=== PATIENT | female | born 1930 | race Caucasian/White ===

== ENCOUNTER 2017-03-18 20:44 | Inpatient (IN) | payer MEDICARE, MEDICAID ==
[~2017-03-18] VITALS: Ht 160 cm; Wt 69.0 kg
[2017-03-18] MEDS ORDERED: morphine 4 MG/ML VIAL IV STA (20:47)
[2017-03-18] MEDS ORDERED: ONDANSETRON 4 MG INJ IV STA (20:47)
[2017-03-18] MEDS ORDERED: ASPIRIN 81 MG TAB PO STA (20:50)
[2017-03-18] MEDS ORDERED: LORAZEPAM 2 MG INJ ONE (21:04)
[2017-03-18] MEDS ORDERED: LORAZEPAM 2 MG INJ IV ONE (21:30)
[2017-03-18] MEDS ORDERED: ASPIRIN 300 MG SUPP PR ONE (21:30)
[2017-03-18] MEDS: LABETALOL HCL 20MG INJ IV ONE ×2 (21:30→21:33)
[2017-03-18 21:45] LABS: BASOPHILS % 0.1 % (0.0-2.0); EOSINOPHILS % 0.1 % (0.0-7.0); HEMATOCRIT 33.9 % (37.0-47.0); HEMOGLOBIN 12.2 g/dl (12.0-16.0); LYMPHOCYTES # 1.5 10^3/ul (0.8-2.9); LYMPHOCYTES % 12.7 % (15.0-51.0); MEAN CORPUSCULAR HEMOGLOBIN 32.9 pg (29.0-33.0); MEAN CORPUSCULAR VOLUME 91.4 fl (82.0-101.0); MEAN PLATELET VOLUME 11.1 fl (7.4-10.4); MONOCYTE # 0.5 10^3/ul (0.3-0.9); MONOCYTES % 4.3 % (0.0-11.0); NEUTROPHILS % 82.3 % (39.0-77.0); PLATELET COUNT 253 10^3/UL (140-415); RED BLOOD COUNT 3.71 10^6/ul (4.20-5.40); RED CELL DISTRIBUTION WIDTH 12.1 % (11.5-14.5); WHITE BLOOD COUNT 11.4 10^3/ul (4.8-10.8)
[2017-03-18] MEDS ORDERED: LIDOCAINE 1% (MDV) 20 ML INJ ONE (22:05)
[2017-03-18] MEDS ORDERED: MIDAZOLAM 1 MG/ML 2 ML INJ ONE (22:05)
[2017-03-18] MEDS ORDERED: NITROGLYCERIN (IC) 100 MCG/ML INJ ONE (22:05)
[2017-03-18] MEDS ORDERED: IOHEXOL 350MG/ML 50 ML BTL ONE (22:05)
[2017-03-18] MEDS ORDERED: FENTAnyl 50 MCG/ML VIAL ONE (22:05)
[2017-03-18] MEDS ORDERED: IODIXANOL LOCM 100 ML BTL ONE (22:05)
[2017-03-18] MEDS ORDERED: VERAPAMIL 5 MG INJ ONE (22:06)
[2017-03-18 22:10] LABS: INR 0.93; PROTIME 12.5 Sec (12.2-14.2)
[2017-03-18 22:11] LABS: PARTIAL THROMBOPLASTIN TIME 32.1 Sec (25.0-35.0)
--- NOTE | 2017-03-18 22:12 | ERA ---
ER Documentation Chief Complaint Date/Time DATE: 03/18/17 TIME: 22:11 Chief Complaint BIBRA 79 c/o SE activity per family. Possible STEMI per EMS. HPI Patient is an 86-year-old female with hypertension who presents with altered mental status. The patient was brought in by ambulance. The paramedics said they had a potential STEMI from the field but no EKG was transmitted to the hospital. The patient had no treatment in route. The patient was not answering questions in the emergency department in the history and physical exam is limited secondary to the patient's mental status and no family here at this point. EKG from the field did not show a true STEMI. ROS All systems reviewed and are negative except as per history of present illness. Allergies Allergies: Coded Allergies: No Known Allergy (Unverified , 03/17/17) PMhx/Soc History of Surgery: Yes (hernia, cholecystectomy) Anesthesia Reaction: No Hx Neurological Disorder: No Hx Respiratory Disorders: No Hx Miscellaneous Medical Probl: Yes (gerd) Hx Alcohol Use: No Hx Substance Use: No Hx Tobacco Use: No FmHx Unable to obtain Physical Exam Vitals Vital Signs Date Time Temp Pulse Resp B/P Pulse Ox O2 Delivery O2 Flow Rate FiO2 03/18/17 21:00 Nasal Cannula 6 03/18/17 20:54 98.0 99 30 204/122 97 Physical Exam Const: Moderate distress secondary to shortness of breath and altered mental status Head: Atraumatic Eyes: Normal Conjunctiva ENT: Normal External Ears, Nose and Mouth. Neck: Full range of motion..~ No meningismus. Resp: Tachypnea and decreased breath sounds bilaterally Cardio: Regular rate and rhythm, no murmurs Abd: Soft, non tender, non distended. Normal bowel sounds Skin: Pale skin Back: No midline or flank tenderness Ext: No cyanosis, or edema Neur: Awake But confused and not answering questions or following commands Result Diagram: 03/18/17211903/18/172119 Results 24 hrs Laboratory Tests Test 03/18/17 20:57 03/18/17 21:20 Bedside Glucose 208mg/dL White Blood Count 11.410^3/ul Red Blood Count 3.7110^6/ul Hemoglobin 12.2g/dl Hematocrit 33.9% Mean Corpuscular Volume 91.4fl Mean Corpuscular Hemoglobin 32.9pg Mean Corpuscular Hemoglobin Concent 36.0g/dl Red Cell Distribution Width 12.1% Platelet Count 25450^3/UL Mean Platelet Volume 11.1fl Neutrophils % 82.3% Lymphocytes % 12.7% Monocytes % 4.3% Eosinophils % 0.1% Basophils % 0.1% Nucleated Red Blood Cells % 0.0/100WBC Neutrophils # (Manual) 9.410^3/ul Lymphocytes # 1.510^3/ul Monocytes # 0.510^3/ul Eosinophils # 0.010^3/ul Basophils # 0.010^3/ul Nucleated Red Blood Cells # 0.010^3/ul Prothrombin Time 12.5Sec Prothrombin Time Ratio 1.0 INR International Normalized Ratio 0.93 Activated Partial Thromboplast Time 32.1Sec Sodium Level 114mmol/L Potassium Level 3.8mmol/L Chloride Level 75mmol/L Carbon Dioxide Level 17mmol/L Anion Gap 26 Blood Urea Nitrogen 10mg/dl Creatinine 0.41mg/dl Glucose Level 196mg/dl Calcium Level 8.5mg/dl Total Bilirubin 0.7mg/dl Direct Bilirubin 0.00mg/dl Indirect Bilirubin 0.7mg/dl Aspartate Amino Transf (AST/SGOT) 39IU/L Alanine Aminotransferase (ALT/SGPT) 38IU/L Alkaline Phosphatase 130IU/L Troponin I < 0.012ng/ml Total Protein 8.1g/dl Albumin 4.3g/dl Globulin 3.80g/dl Albumin/Globulin Ratio 1.13 Current Medications Medications (Trade) Dose Ordered Sig/Teddy Route PRN Reason Start Time Stop Time Status Last Admin Dose Admin Morphine Sulfate (morphine) 4 mg ONCE STAT IV 03/18/17 20:47 03/18/17 20:49 DC Ondansetron HCl (Zofran Inj) 4 mg ONCE STAT IV 03/18/17 20:47 03/18/17 20:49 DC 03/18/17 21:34 Aspirin (Aspirin) 162 mg ONCE STAT PO 03/18/17 20:50 03/18/17 21:22 DC Lorazepam (Ativan) 2 mg STK-MED ONCE .ROUTE 03/18/17 21:04 03/18/17 21:05 DC Lorazepam (Ativan) 1 mg ONCE ONCE IV 03/18/17 21:30 03/18/17 21:31 DC 03/18/17 21:34 Labetalol HCl (Labetalol) 20 mg ONCE ONCE IV 03/18/17 21:30 03/18/17 21:31 DC Aspirin (Aspirin) 300 mg ONCE ONCE ME 03/18/17 21:30 03/18/17 21:31 DC 03/18/17 21:34 Procedures/MDM EKG #1 read by me: Rate/Rhythm: Regular rate and rhythm at a normal rate intervals: Normal Impression: No evidence of ischemia or arrhythmia. No sign of ST elevations or reciprocal depressions EKG #2 read by me: Rate/Rhythm: Regular rate and rhythm at a normal rate Intervals: Normal Impression: Diffuse ST elevations inferior leads with reciprocal depressions consistent with STEMI, much changed from 1st EKG done approximately [address] brain shows no intrarenal hemorrhage or mass per radiology. PROCEDURE: XR Chest. CLINICAL INDICATION: Sepsis. TECHNIQUE: Single frontal view. COMPARISON: None. FINDINGS: There is mild diffuse bilateral interstitial pulmonary disease. The heart size is normal. There is calcification in the aorta consistent with atherosclerosis. There is no pleural effusion. There is no pneumothorax. IMPRESSION: 1. Diffuse bilateral interstitial pulmonary disease. This is nonspecific. Clinical correlation is advised. 2. Atherosclerosis. 3. Otherwise normal chest x-ray. RPTAT: QQ .Pillo Rojo MD, MD Date Time Electronically viewed and signed by .Pillo Rojo MD, MD on 03/18/2017 22:28 Patient is an 86-year-old female who presented confused with altered mental status. She appeared to have shortness of breath as well. An initial EKG done upon arrival shows no STEMI in the emergency department. Our nurse noticed that after a few minutes in the room morphology on the degreasing solution mixer was changing and a repeat EKG showed ST elevations in the inferior leads and a code STEMI was called at 2121. Dr. Lim was called at 2123 as he is the senior court office assistant applications engineering manager. A 2134 Dr. Lim called back and we were concerned for doing an immediate cath and giving anticoagulation without having a CT scan of the brain based on the patient's altered mental status and unclear history. We did believe that the risks would outweigh the benefits of going directly to the cardiac Soldering Technician. At [address] scan and we were still awaiting arrival of the cardiac cath team. Once the patient returned from CT scan we called to have the CT brain read immediately and it was read at 2228. The patient will be admitted to the intensive care unit under the care of Dr. Macdonald from the panel team. The door to needle time was more than 60 minutes given the initial EKG which was normal as well as needing to wait for the CT scan of the brain which I did feel was in the best interest of the patient's presentation given the altered mental status and concern for anticoagulating if the patient had a brain bleed. The patient eventually was found to have a sodium level of 114 which is likely the cause of the patient's altered mental status. The patient will be admitted to the intensive care unit under the care of Dr. Macdonald. Prognosis is poor given her age and comorbidities. Critical Care: Time: 45 minutes excluding all billable procedures. Treatments/Evaluations: Close monitoring and treatment of unstable vital signs, cardiorespiratory, and neurologic status, while maintaining tight balance of fluid, respiratory, and cardiac interventions. Departure Diagnosis: Primary Impression: STEMI (ST elevation myocardial infarction) Qualified Code: I21.3 - ST elevation myocardial infarction (STEMI), unspecified artery Additional Impressions: Acute encephalopathy Seizure Hyponatremia Condition: Critical JOANA HANSON MD Mar 18, 2017 22:12
--- NOTE | 2017-03-18 22:13 | RADRPT ---
PROCEDURE: CT Brain without contrast. CLINICAL INDICATION: Altered mental status. Seizure. TECHNIQUE: A CT of the brain without contrast was performed utilizing axial sections from the skul l base through the vertex. The patient was scanned without intravenous contrast enhancement. Sagitta l and coronal reformatted images were obtained using the data from the axial images. Total exam DLP is 720.23 mGy-cm. CTDIvol is 44.93 mGy. One or more of the following dose reduction techniques were used: Automated exposure control, adjustment of the mA and/or kV according to patient size, use of iterative reconstruction technique. COMPARISON: None available. FINDINGS: There is normal santoyo-white matter differentiation. There is enlargement of the ventricles and subarachnoid spaces consistent with atrophy. There is decreased attenuation of the periventricular white matter consistent with microangiopathic ischemic change. There is no intracranial hemorrhage or space-occupying lesion. There are vascular calcifications consistent with atherosclerosis. There is no skull fracture or lytic lesion. IMPRESSION: 1. Atrophy. 2. Microangiopathic ischemic change. 3. Atherosclerosis. 4. No intracranial hemorrhage. 5. Otherwise unremarkable noncontrast CT scan of the brain. RPTAT: QQ .Pillo Rojo MD, MD Date Time Electronically viewed and signed by .Pillo Rojo MD, on 03/18/2017 22:13 .R/
[2017-03-18 22:14] LABS: ALANINE AMINOTRANSFERASE 38 IU/L (13-69); ALBUMIN 4.3 g/dl (3.3-4.9); ALBUMIN/GLOBULIN RATIO 1.13; ALKALINE PHOSPHATASE 130 IU/L (42-121); ANION GAP 26 (8-16); ASPARTATE AMINO TRANSFERASE 39 IU/L (15-46); BILIRUBIN,INDIRECT 0.7 mg/dl (0-1.1); BILIRUBIN,TOTAL 0.7 mg/dl (0.2-1.3); BLOOD UREA NITROGEN 10 mg/dl (7-20); CALCIUM 8.5 mg/dl (8.4-10.2); CARBON DIOXIDE 17 mmol/L (21-31); CHLORIDE 75 mmol/L (97-110); CREATININE 0.41 mg/dl (0.44-1.00); GLUCOSE 196 mg/dl (70-220); POTASSIUM 3.8 mmol/L (3.5-5.1); TOTAL PROTEIN 8.1 g/dl (6.1-8.1)
--- NOTE | 2017-03-18 22:15 | CONS ---
Date/Time of Note Date/Time of Note DATE: 03/18/17 TIME: 22:15 Assessment/Plan Assessment/Plan Chief Complaint/Hosp Course 1. Transient Inferior STEMI: but catherine angio did not show any flow limiting obstruction 2. severe hypo Na 3. HTN 4. R/O Dyslipidemia 5. altered LOC 6. diffuse echymosis/ bruisis and skin abrasions 7. abnormal ECG 8. metabolic acidosis 9. hyperglycemia. PLAN: Admit to ICU IV fluid check lactic acid level f/u on Na level. ASA daily echo in AM. check lipid panel in AM More than 45 minutes of critical care time was spent in management and treatment of this patient, excluding any procedures You for his referral. We will continue to follow along with you HARESH JOVANNI Problems: Consultation Date/Type/Reason Admit Date/Time Date of Consultation: Mar 18, 2017 Type of Consultation: emergent interventional card Reason for Consultation STEMI Referring Provider: JOANA HANSON MD Hx of Present Illness Chief complaint: Chills at the level of consciousness Reason for consult inferior ST elevation ME on the EKG Thank you for his referral. This 78-year-old female with history of hypertension who was revisited in the emergency room today. Patient apparently was here last night with abdominal pain workup including CT of the abdomen was unremarkable. Patient was discharged. However patient was brought back because family saw her "shaking". Patient was brought into the emergency room and remained nonverbal. Appeared to be altered. EKG by paramedics were read as ST elevation ME. EKG was repeated in the emergency room which was normal. However after some time EKG had to be repeated because but the monitor was noted to be changes. Repeat EKG has shown inferior ST elevation. Code STEMI was called. I was contacted and came immediately to the hospital emergency room. It was discussed already with the ER physician due to her out the letter of conscious and unresponsive it was felt that the CVA needs to be ruled out. She was taken to the CT scan. Discussed with the family regarding the angiogram. The daughter who was at the bedside was of the other family members. After discussion with the other family member decided to go on proceed with all the procedures necessary and consented to the cardiac catheterization. Patient was taken to the Admissions Specialist and coronary angiogram was started once the CAT scan did not show any evidence of CVA. In the coronary angiogram lab patient was able to verbalize minimally at this point. Cardiac catheterization was done emergently by myself which showed no evidence of flow- limiting obstruction. Patient is being admitted to the ICU. At this point labs have been obtained which has shown severe hyponatremia Past medical history: History of hypertension possibly dyslipidemia as well. History patient does not smoke or drink. Family history: No reported early coronary artery disease Medication at home was reviewed which also includes hydrochlorothiazide ROS: As above only plus multiple bruises patient has been suffering. Exam/Review of Systems Vital Signs Vitals Vital Signs Date Time Temp Pulse Resp B/P Pulse Ox O2 Delivery O2 Flow Rate FiO2 03/18/17 20:54 98.0 99 30 204/122 97 Exam General: elderly female. no acute distress HEENT: NC/AT. pupils are equal. round. NECK: NO JVD. no stridor. CV: RRR. systolic murmur; no gallop or rubs. PULM: no wheezing or rhonchi. GI: SOFT, NT, ND, no rebound or guarding Extremity: trace B/L LE edema. no clubbing. neuro: opens her eyes. oriented x 1 Psych: anxious rectal: deferred Derm: diffuse and multiple echymosis and bruises and superficial laceration on the skin. ECG initially showed NSR normal repeat ECG NSR inferior STEMI Results Result Diagram: 03/18/172119 Results 24 hrs Laboratory Tests Test 03/18/17 20:57 03/18/17 21:20 Bedside Glucose 208 White Blood Count 11.4 #H Red Blood Count 3.71 L Hemoglobin 12.2 Hematocrit 33.9 L Mean Corpuscular Volume 91.4 Mean Corpuscular Hemoglobin 32.9 Mean Corpuscular Hemoglobin Concent 36.0 Red Cell Distribution Width 12.1 Platelet Count 253 Mean Platelet Volume 11.1 H Neutrophils % 82.3 H Lymphocytes % 12.7 L Monocytes % 4.3 Eosinophils % 0.1 Basophils % 0.1 Nucleated Red Blood Cells % 0.0 Neutrophils # (Manual) 9.4 H Lymphocytes # 1.5 Monocytes # 0.5 Eosinophils # 0.0 Basophils # 0.0 Nucleated Red Blood Cells # 0.0 Prothrombin Time 12.5 Prothrombin Time Ratio 1.0 INR International Normalized Ratio 0.93 Activated Partial Thromboplast Time 32.1 HARESH BAIG MD Mar 18, 2017 22:15
--- NOTE | 2017-03-18 22:28 | RADRPT ---
PROCEDURE: XR Chest. CLINICAL INDICATION: Sepsis. TECHNIQUE: Single frontal view. COMPARISON: None. FINDINGS: There is mild diffuse bilateral interstitial pulmonary disease. The heart size is normal. There is calcification in the aorta consistent with atherosclerosis. There is no pleural effusion. There is no pneumothorax. IMPRESSION: 1. Diffuse bilateral interstitial pulmonary disease. This is nonspecific. Clinical correlation is advised. 2. Atherosclerosis. 3. Otherwise normal chest x-ray. RPTAT: QQ .Pillo Rojo MD, MD Date Time Electronically viewed and signed by .Pillo Rojo MD, MD on 03/18/2017 22:28 .R/
[2017-03-18 22:29] LABS: SODIUM 114 mmol/L (135-144); TROPONIN-I < 0.012 ng/ml (0.00-0.12)
--- NOTE | 2017-03-18 22:54 | OPR ---
Date/Time of Note Date/Time of Note DATE: 03/18/17 TIME: 22:50 Operative Report Procedure Date: Mar 18, 2017 Procedure Description Procedure performed: 1. Left heart catheterization, selective right and left coronary angiogram 2. right femoral angiogram and 3. moderate sedation for more than 30 minutes. Sample Washer: Haresh Lim MD Indication:: inferior STEMI on ECG Findin. Left main coronary artery: has 10% ostial stenosis 2. Left anterior descending artery: Its a moderate size vessel and goes around the apex. It has no significant stenosis proximally, and 50% stenosis of the mid LAD. 3. Left circumflex artery: Is large and nondominant. It has minimal stenosis . 4. Right coronary artery: Is a dominant vessel. It has minimal stenosis 5. LV pressure: 160/17; Aortic pressure by pull back is 174/77. EF 45% mild Inf HK. Written informed consent with obtained after risks benefits and alternatives discussed with the patient's daughter in detail. risks including but not limited to risk of infection vascular complications, bleeding complications, [place] stroke arrhythmia renal failure at even were discussed with the patient in detail. Patient was brought into the cardiac construction laborer and placed in supine position. Right and left groin area was prepped and draped in regular sterile fashion and then he was in anesthetized using 1% lidocaine. Right femoral artery was cannulated and using modified seldinger technique a 6 Upper [place] sheath was placed in the right femoral artery. Right femoral angiogram was performed. JL4 catheter was advanced and engaged into the left main coronary artery and angiographic view was obtained. The JR4 catheter was advanced and engaged right coronary artery angiographic view was obtained. Pigtail was advanced to engage the left ventricle and LV gram was done. then hemodynamics ]was recorded by pullback aortic pressure was measured Patient tolerated procedure well with no complication. Patient is to be transferred to recovery room in stable condition. contrast used: 55 cc Conclusions: no flow limiting obstruction is seen recommend medical therapy HARESH LIM MD Mar 18, 2017 22:54
[2017-03-18 22:57] VITALS: Ht 160 cm; Wt 69.0 kg
[2017-03-18] MEDS ORDERED: SOD CHLORIDE 0.9% 1,000 ML IV SCH (22:58)
[2017-03-18 23:00] VITALS: BP 150/75; PULSE 70
[2017-03-18 23:28] VITALS: PULSE 84
[2017-03-19] VITALS (34 sets, daily range): BP systolic 102–182; BP diastolic 48–95; PULSE 68–209; RESP 15–26
[2017-03-19] MEDS ORDERED: morphine 2 MG INJ IV PRN
[2017-03-19] MEDS ORDERED: ALBUTEROL/IPRATROPIUM (NEB) 3 ML AMP HHN PRN
[2017-03-19] MEDS ORDERED: LORAZEPAM 2 MG INJ IV PRN
[2017-03-19] MEDS ORDERED: ONDANSETRON 4 MG INJ IV PRN
--- NOTE | 2017-03-19 00:11 | HP ---
Date/Time of Note Date/Time of Note DATE: 03/18/17 TIME: 23:51 Assessment/Plan VTE Prophylaxis VTE Prophylaxis Intervention: LMWH Assessment/Plan Assessment/Plan 86 yo F who came in as a CODE STEMI after having whoat sounds like an isolated seizure episode at home after a 2week hx of abd pain / N/ V: 1. Altered mental status 2. Severe hyponatremia thought to be causing #1: ?cause, ?meds 3. Acute ST elevation myocardial infarction thought to be secondary to coronary vasospasm status post emergent angiogram with clean coronaries 4. Acute seizure episode 1 which may be secondary to #2 5. Pancreatic cystic structure on CT scan 6. Hyperglycemia 7. Hypertensive crisis: Improved PLAN: Patient is persistently altered state is concerning. Differentials include ongoing seizure versus probably sequelae of hypoxia. Hence patient is admitted to the intensive care unit for close monitoring and post angiogram measures, will also do 1 dose of Keppra as well as obtain an EEG. If patient's mentation does not improve, she may require MRI of the brain and possibly neurology consultation. Regarding her symptomatology, this patient came in with abdominal pain nausea vomiting, and the only abnormal finding on CAT scan is a pancreatic cystic structure. The patient is also noted to have hypoglycemia, as well as severe hyponatremia. We will therefore work patient up for a possible pancreatic tumor to include a CA-19-9, MRI of the abdomen pancreatic protocol, as well as a an ultrasound of the right upper quadrant. We will have to review all her home medications when available to see if 1 of them could have been causing the hyponatremia. In the interim she was kept n.p.o. for the MRI procedure, she would need a bedside swallow eval if her mentation is not improved in the morning, and further interventions will depend on her clinical course. We will provide supportive intensive care unit care at this time. This plan has been discussed with her family in detail, questions have been answered. Prophylaxis: PPI/Lovenox. HPI/ROS Admit Date/Time Admit Date/Time March 19, 2017 Hx of Present Illness This is an 86-year-old female with a past medical history only of high blood pressure who was brought into the as a code STEMI. This patient was seen in the emergency room yesterday after she had presented with a 2 day 2 week history of abdominal discomfort, intermittent nausea, and just a generalized feeling of being ill. She was worked up extensively in the ER, she underwent a CAT scan of her abdomen, no acute abnormalities were found. Once patient felt better, she was discharged to follow-up as outpatient with her primary MD. However today her family notes that she continued to complain of the same symptoms, and then all of a sudden had what seemed like a seizure episode. Is described as her shaking violently, losing consciousness, and at that point the family decided to call EMS. When EMS arrived, her EKG was showing an ST elevation myocardial infarction and she was emergently brought to the emergency room from where she was taken to the Field Service Coordinator. Angiogram however did not show any obstructive lesions in the coronary arteries, the oven heater feels the patient might have just had a coronary spasm, however she was noted to be severely hyponatremic with a serum sodium of 119. She is being admitted to the intensive care unit for further workup and post angiogram management. TRACY Comer is currently confused, oriented only to her name, and as such cannot give us any history. Information obtained is from family and is noted in HPI above. PMH/Family/Social Past Medical History * HTN * hx of kidney stones Past Surgical History * Recent abd hernia repair about 3-4mths ago * Cholecystectomy * evidence of previous biliary sphincterotomy on CT Social History Smoking Status: Never smoker Exam/Review of Systems Vital Signs Vitals Vital Signs Date Time Temp Pulse Resp B/P Pulse Ox O2 Delivery O2 Flow Rate FiO2 03/18/17 22:52 95 17 152/90 99 Nasal Cannula 6.0 03/18/17 20:54 98.0 Exam Constitutional: alert, oriented (to name only), other (elderly) Psych: confusion, other (requiring restarints) Head: atraumatic, normocephalic Eyes: PERRL, No icteric ENMT: No mucosa pink and moist (dry) Neck: supple Respiratory: crackles/rales (coarse crackes on the sides), diminished breath sounds Cardiovascular: regular rate and rhythm, No murmurs/extra sounds Gastrointestinal: soft, surgical scars (healed yury / infraumbilical scar, but evidence of moderate sized anterior abd wall hernia ) Musculoskeletal: nl extremities to inspection Extremities: No edema Neurological: confused (++), No nl mental status, No nl speech Skin: No rash or lesions Labs Result Diagram: [id number]/211903/18/172119 Medications Medications Current Medications Sodium Chloride (NS) 1,000 ml @ 75 mls/hr [id number] IV ; Start 03/18/17 at 22:58 ; Stop 03/19/17 at 03:57 Procedures Procedures Laboratory Tests Test 03/18/17 20:57 03/18/17 21:20 Bedside Glucose 208mg/dL White Blood Count 11.410^3/ul Red Blood Count 3.7110^6/ul Hemoglobin 12.2g/dl Hematocrit 33.9% Mean Corpuscular Volume 91.4fl Mean Corpuscular Hemoglobin 32.9pg Mean Corpuscular Hemoglobin Concent 36.0g/dl Red Cell Distribution Width 12.1% Platelet Count 71075^3/UL Mean Platelet Volume 11.1fl Neutrophils % 82.3% Lymphocytes % 12.7% Monocytes % 4.3% Eosinophils % 0.1% Basophils % 0.1% Nucleated Red Blood Cells % 0.0/100WBC Neutrophils # (Manual) 9.410^3/ul Lymphocytes # 1.510^3/ul Monocytes # 0.510^3/ul Eosinophils # 0.010^3/ul Basophils # 0.010^3/ul Nucleated Red Blood Cells # 0.010^3/ul Prothrombin Time 12.5Sec Prothrombin Time Ratio 1.0 INR International Normalized Ratio 0.93 Activated Partial Thromboplast Time 32.1Sec Sodium Level 114mmol/L Potassium Level 3.8mmol/L Chloride Level 75mmol/L Carbon Dioxide Level 17mmol/L Anion Gap 26 Blood Urea Nitrogen 10mg/dl Creatinine 0.41mg/dl Glucose Level 196mg/dl Calcium Level 8.5mg/dl Total Bilirubin 0.7mg/dl Direct Bilirubin 0.00mg/dl Indirect Bilirubin 0.7mg/dl Aspartate Amino Transf (AST/SGOT) 39IU/L Alanine Aminotransferase (ALT/SGPT) 38IU/L Alkaline Phosphatase 130IU/L Troponin I < 0.012ng/ml Total Protein 8.1g/dl Albumin 4.3g/dl Globulin 3.80g/dl Albumin/Globulin Ratio 1.13 Current Medications so far Medications (Trade) Dose Ordered Sig/Teddy Route PRN Reason Start Time Stop Time Status Last Admin Dose Admin Morphine Sulfate (morphine) 4 mg ONCE STAT IV 03/18/17 20:47 03/18/17 20:49 DC Ondansetron HCl (Zofran Inj) 4 mg ONCE STAT IV 03/18/17 20:47 03/18/17 20:49 DC 03/18/17 21:34 4 MG Aspirin (Aspirin) 162 mg ONCE STAT PO 03/18/17 20:50 03/18/17 21:22 DC Lorazepam (Ativan) 2 mg STK-MED ONCE .ROUTE 03/18/17 21:04 03/18/17 21:05 DC Lorazepam (Ativan) 1 mg ONCE ONCE IV 03/18/17 21:30 03/18/17 21:31 DC 03/18/17 21:34 1 MG Labetalol HCl (Labetalol) 20 mg ONCE ONCE IV 03/18/17 21:30 03/18/17 21:31 DC Aspirin (Aspirin) 300 mg ONCE ONCE AK 03/18/17 21:30 03/18/17 21:31 DC 03/18/17 21:34 300 MG Lidocaine (Xylocaine 1% (Mdv) 20 ml) 20 ml STK-MED ONCE .ROUTE 03/18/17 22:05 03/18/17 22:06 DC Iohexol (Omnipaque 350mg/ ml) 50 ml STK-MED ONCE .ROUTE 03/18/17 22:05 03/18/17 22:06 DC Iodixanol 100 ml 100 ml STK-MED ONCE .ROUTE 03/18/17 22:05 03/18/17 22:06 DC Heparin Sodium/ Sodium Chloride (Heparin 1000 Units/NS (A-Line)) 1,500 ml @ ud STK-MED ONCE .ROUTE 03/18/17 22:05 03/18/17 22:06 DC Nitroglycerin (Nitroglycerin (Intracoronary)) 1,000 mcg STK-MED ONCE .ROUTE 03/18/17 22:05 03/18/17 22:06 DC Fentanyl (Sublimaze) 100 mcg STK-MED ONCE .ROUTE 03/18/17 22:05 03/18/17 22:06 DC Midazolam HCl (Versed) 2 mg STK-MED ONCE .ROUTE 03/18/17 22:05 03/18/17 22:06 DC Verapamil HCl (Verapamil) 5 mg STK-MED ONCE .ROUTE 03/18/17 22:06 03/18/17 22:07 DC Miscellaneous Information HOLD all METFORMIN ... ONCE ONCE XX 03/18/17 23:00 03/18/17 23:04 DC Sodium Chloride (NS) 1,000 ml @ 75 mls/hr [id number] IV 03/18/17 22:58 03/19/17 03:57 PROCEDURE: XR Chest. CLINICAL INDICATION: Sepsis. TECHNIQUE: Single frontal view. COMPARISON: None. FINDINGS: There is mild diffuse bilateral interstitial pulmonary disease. The heart size is normal. There is calcification in the aorta consistent with atherosclerosis. There is no pleural effusion. There is no pneumothorax. IMPRESSION: 1. Diffuse bilateral interstitial pulmonary disease. This is nonspecific. Clinical correlation is advised. 2. Atherosclerosis. 3. Otherwise normal chest x-ray. RPTAT: QQ .Pillo Rojo MD, MD Date Time Electronically viewed and signed by .Pillo Rojo MD, MD on 03/18/2017 22:28 .R/ CC: JOANA HANSON MD PROCEDURE: CT Brain without contrast. CLINICAL INDICATION: Altered mental status. Seizure. TECHNIQUE: A CT of the brain without contrast was performed utilizing axial sections from the skull base through the vertex. The patient was scanned without intravenous contrast enhancement. Sagittal and coronal reformatted images were obtained using the data from the axial images. Total exam DLP is 720.23 mGy-cm. CTDIvol is 44.93 mGy. One or more of the following dose reduction techniques were used: Automated exposure control, adjustment of the mA and/or kV according to patient size, use of iterative reconstruction technique. COMPARISON: None available. FINDINGS: There is normal santoyo-white matter differentiation. There is enlargement of the ventricles and subarachnoid spaces consistent with atrophy. There is decreased attenuation of the periventricular white matter consistent with microangiopathic ischemic change. There is no intracranial hemorrhage or space-occupying lesion. There are vascular calcifications consistent with atherosclerosis. There is no skull fracture or lytic lesion. IMPRESSION: 1. Atrophy. 2. Microangiopathic ischemic change. 3. Atherosclerosis. 4. No intracranial hemorrhage. 5. Otherwise unremarkable noncontrast CT scan of the brain. RPTAT: QQ .Pillo Rojo MD, MD Date Time Electronically viewed and signed by .Pillo Rojo MD, MD on 03/18/2017 22:13 .R/ PROCEDURE: CT of the abdomen and pelvis without contrast CLINICAL INDICATION: Abdominal Pain. TECHNIQUE: Spiral CT images through the abdomen and pelvis without the use of contrast. The administered radiation dose is CTDI 20.45 and DLP and 1118.27. One or more of the following dose reduction techniques were used: automated exposure control, adjustment of the mA and/or kV according to patient size, or use of iterative reconstruction technique. COMPARISON: None FINDINGS: Lack of oral and intravenous contrast somewhat limits evaluation. There is peribronchial thickening and septal thickening at the lung bases which could be due to underlying edema or a component bronchiolitis and/or possible interstitial fibrosis.. Aortic and coronary artery calcification is seen. Cardiomegaly. Calcification of the mitral annulus.. Clips are seen from prior cholecystectomy. Intra and extrahepatic biliary air is seen, presumably from prior sphincterotomy. Duodenal diverticulum is seen. There are several small probable hepatic cysts. The spleen, adrenals, and kidneys are unremarkable appearance. Tiny calcification is seen in the pancreatic tail. 7 mm cystic lesion in the uncinate process of the pancreas versus slightly dilated duct. The common bile duct measures 10 mm. 1 cm gastrohepatic ligament node is seen. Normal appendix. There is thinning and eventration of the anterior abdominal wall with a small fat-containing umbilical hernia and moderate infraumbilical and to abdominal wall hernia containing fat. . The uterus is unremarkable appearance. Few small calcifications are seen in the ovaries. Unremarkable urinary bladder. There is no definite evidence for bowel obstruction, free air, or abscess. Moderate right-sided stool. Injection granulomas in the gluteal regions. Prominent calcification of the aorta and branches. Diffuse osteopenia and degenerative change of the spine. IMPRESSION: No definite acute abnormality of the abdomen or pelvis. Fat-containing umbilical and anterior abdominal hernias without stranding. Biliary air. 7 mm cystic lesion in the uncinate process of the pancreas versus slightly dilated duct. Elective follow-up MRI could be considered. Bibasilar atelectasis with possible bronchiolitis or component of mild pulmonary fibrosis. RPTAT: [facility] Physician Ruben Date Time Electronically viewed and signed by Sasha Queen Physician on 03/18/2017 02 :17 LE/ CC: JOANA HANSON MD, BOLATITO M. Mar 19, 2017 00:02
[2017-03-19] MEDS ORDERED: LEVETIRACETAM 1000 MG (PMX) 100 ML IVPB ONE (00:30)
[2017-03-19] MEDS ORDERED: ACCU-CHEK XX SCH (02:00)
[2017-03-19] MEDS: ACCU-CHEK XX SCH (02:00)
[2017-03-19 03:01] LABS: CANCER ANTIGEN 125 7.9 U/ml (0.0-35.0); CARCINOEMBRYONIC ANTIGEN 3.8 ng/ml (0.0-5.0)
[2017-03-19 03:05] LABS: CANCER ANTIGEN 19-9 19.2 U/ml (0.0-37.0)
[2017-03-19] MEDS ORDERED: DEXTROSE 50% 50 ML SYRINGE IV PRN ×2 (03:30)
[2017-03-19] MEDS ORDERED: GLUCOSE GEL 15 GRAM TUBE BUCCAL PRN (03:30)
[2017-03-19] MEDS ORDERED: GLUCAGON 1 MG INJ IM PRN (03:30)
[2017-03-19] MEDS ORDERED: GLUCOSE GEL 15 GRAM TUBE PO PRN ×2 (03:30)
[2017-03-19] MEDS ORDERED: LABETALOL HCL 20MG INJ IV PRN (04:00)
[2017-03-19] MEDS ORDERED: POLY17PO3 PO (04:22)
[2017-03-19] MEDS ORDERED: MONT10TA24 PO (04:22)
[2017-03-19] MEDS ORDERED: PANT40TA4 PO (04:22)
[2017-03-19] MEDS ORDERED: HYDR12.58 PO (04:22)
[2017-03-19] MEDS ORDERED: DICY10SO PO (04:22)
[2017-03-19] MEDS ORDERED: NITR-58 PO (04:22)
[2017-03-19] MEDS ORDERED: DICL75TA2 PO (04:22)
[2017-03-19 05:39] LABS: INR 0.96; PROTIME 12.8 Sec (12.2-14.2)
[2017-03-19 05:51] LABS: ALBUMIN 3.5 g/dl (3.3-4.9); ALBUMIN/GLOBULIN RATIO 0.94; CALCIUM 8.7 mg/dl (8.4-10.2); CREATININE 0.38 mg/dl (0.44-1.00); MAGNESIUM 1.6 mg/dl (1.7-2.5); POTASSIUM 3.7 mmol/L (3.5-5.1); TOTAL PROTEIN 7.2 g/dl (6.1-8.1)
[2017-03-19 05:59] LABS: CK-MB 15.7 ng/ml (0.0-2.4)
[2017-03-19] MEDS ORDERED: PANTOPRAZOLE 40 MG INJ IV SCH (06:00)
[2017-03-19 06:04] LABS: TROPONIN-I 2.08 ng/ml (0.00-0.12)
[2017-03-19 06:23] LABS: THYROID STIMULATING HORMONE 2.41 MIU/L (0.465-4.680)
[2017-03-19] MEDS ORDERED: MAGNESIUM SULFATE 2 GM/50 ML 50 ML IVPB ONE ×2 (07:00→20:30)
[2017-03-19] MEDS ORDERED: NACL 3% 500 ML IV SCH ×2 (07:00→18:00)
[2017-03-19] MEDS ORDERED: HYDR-906 PO (07:25)
[2017-03-19] MEDS ORDERED: LOSA25TA5 PO (07:27)
[2017-03-19] MEDS: DOCUSATE SODIUM 100 MG CAP PO SCH ×2 (08:22→20:49)
[2017-03-19] MEDS: ASPIRIN (EC) 81 MG TAB PO SCH (08:23)
--- NOTE | 2017-03-19 08:52 | RADRPT ---
PROCEDURE: US Abdomen (right upper quadrant). CLINICAL INDICATION: Mildly dilated common bile duct. TECHNIQUE: Multiple real-time longitudinal and transverse images of the right upper quadrant of th e abdomen were acquired utilizing a curved array transducer. Images were reviewed on a high-resoluti on PACS workstation. COMPARISON: CT abdomen pelvis 03/18/2017. FINDINGS: The liver is normal in size with a slightly coarsened echotexture without focal mass or intrahepatic biliary dilatation. There is normal hepatopedal flow within the main portal vein. The gallbladder is surgically absent. The common bile duct measures 7.0 mm in maximal dimension. The visualized p ortions of the pancreas are unremarkable with obscuration of the tail of the pancreas. No free flui d is identified. The right kidney measures 10.4 cm in length. There is normal echogenicity within the right kidney. There is no perinephric fluid collection. No hydronephrosis, mass, or calculus is seen. IMPRESSION: 1. Mildly coarsened echotexture of the liver suggesting mild steatosis. 2. Status post cholecystectomy without significant biliary tree dilatation. RPTAT: [facility] Physician Mendy Date Time Electronically viewed and signed by Physician Mendy on 03/19/2017 08:52 /
[2017-03-19] MEDS: INSULIN ASPART [NOVOLOG] 3 ML PEN SC SCH ×4 (08:57→20:38)
[2017-03-19] MEDS ORDERED: ENOXAPARIN 40 MG/0.4 ML SYG SC SCH (09:00)
[2017-03-19 10:28] LABS: GIANT THROMBO% (M) 3 % (0-0); MONOCYTES % (M) 10 % (0-11); PLATELET ESTIMATE NORMAL
[2017-03-19 11:06] LABS: HEMATOCRIT 32.7 % (37.0-47.0); MEAN CORPUSCULAR HEMOGLOBIN 31.9 pg (29.0-33.0); MEAN CORPUSCULAR HGB CONC 36.7 g/dl (32.0-37.0); MEAN PLATELET VOLUME 10.9 fl (7.4-10.4); PLATELET COUNT 235 10^3/UL (140-440); RED BLOOD COUNT 3.76 10^6/ul (4.20-5.40); RED CELL DISTRIBUTION WIDTH 11.9 % (11.5-14.5); WHITE BLOOD COUNT 13.4 10^3/ul (4.8-10.8)
[2017-03-19 13:45] LABS: CALCIUM 8.6 mg/dl (8.4-10.2); CREATININE 0.53 mg/dl (0.44-1.00); POTASSIUM 3.8 mmol/L (3.5-5.1)
--- NOTE | 2017-03-19 14:15 | PN ---
Date/Time of Note Date/Time of Note DATE: 03/19/17 TIME: 13:59 Assessment/Plan VTE Prophylaxis VTE Prophylaxis Intervention: SCD's Lines/Catheters IV [facility] Peripheral IV Assessment/Plan Chief Complaint/Hosp Course 1. Acute metabolic encephalopathy secondary to postictal state and/or hyponatremia -Keppra twice daily for now -Neuro consultation 2. Severe hyponatremia thought to be causing #1 -Continue IV fluids now witH normal saline 3. Acute ST elevation myocardial infarction thought to be secondary to coronary vasospasm status post emergent angiogram with clean coronaries 4. Hypertension-stable 5. Pancreatic cystic structure on CT scan -Workup in progress Prophylaxis: SCDs Problems: Subjective 24 Hr Interval Summary Subjective hx not possible: pt non-verbal Exam/Review of Systems Vital Signs Vitals Vital Signs Date Time Temp Pulse Resp B/P Pulse Ox O2 Delivery O2 Flow Rate FiO2 03/19/17 12:00 99.2 91 25 100 Nasal Cannula 03/19/17 08:00 2.0 Exam Psych: confusion Respiratory: clear to auscultation Cardiovascular: regular rate and rhythm Gastrointestinal: soft, No distended Musculoskeletal: nl extremities to inspection Results Result Diagram: 03/19/17 0450 03/19/17 1255 Results 24 hrs Laboratory Tests Test 03/18/17 20:57 03/18/17 21:20 03/19/17 01:15 03/19/17 02:56 Bedside Glucose 208 138 White Blood Count 11.4 #H Red Blood Count 3.71 L Hemoglobin 12.2 Hematocrit 33.9 L Mean Corpuscular Volume 91.4 Mean Corpuscular Hemoglobin 32.9 Mean Corpuscular Hemoglobin Concent 36.0 Red Cell Distribution Width 12.1 Platelet Count 253 Mean Platelet Volume 11.1 H Neutrophils % 82.3 H Lymphocytes % 12.7 L Monocytes % 4.3 Eosinophils % 0.1 Basophils % 0.1 Nucleated Red Blood Cells % 0.0 Neutrophils # (Manual) 9.4 H Lymphocytes # 1.5 Monocytes # 0.5 Eosinophils # 0.0 Basophils # 0.0 Nucleated Red Blood Cells # 0.0 Prothrombin Time 12.5 Prothrombin Time Ratio 1.0 INR International Normalized Ratio 0.93 Activated Partial Thromboplast Time 32.1 Sodium Level 114 *L Potassium Level 3.8 Chloride Level 75 #L Carbon Dioxide Level 17 #L Anion Gap 26 #H Blood Urea Nitrogen 10 Creatinine 0.41 L Glucose Level 196 Calcium Level 8.5 Total Bilirubin 0.7 Direct Bilirubin 0.00 Indirect Bilirubin 0.7 Aspartate Amino Transf (AST/SGOT) 39 Alanine Aminotransferase (ALT/SGPT) 38 Alkaline Phosphatase 130 H Troponin I < 0.012 Total Protein 8.1 Albumin 4.3 Globulin 3.80 H Albumin/Globulin Ratio 1.13 Lactic Acid Level 2.5 *H Lipase 72 Carcinoembryonic Antigen 3.8 CA 19-9 Antigen 19.2 CA 125 Antigen 7.9 Test 03/19/17 04:50 03/19/17 05:05 03/19/17 08:34 03/19/17 12:19 White Blood Count 13.4 H Red Blood Count 3.76 L Hemoglobin 12.0 Hematocrit 32.7 L Mean Corpuscular Volume 87.0 Mean Corpuscular Hemoglobin 31.9 Mean Corpuscular Hemoglobin Concent 36.7 Red Cell Distribution Width 11.9 Platelet Count 235 Mean Platelet Volume 10.9 H Segmented Neutrophils % (Manual) 80 H Lymphocytes % (Manual) 10 L Monocytes % (Manual) 10 Absolute Lymphocytes (Manual) 1.3 Absolute Monocytes (Manual) 1.3 H Thrombocytosis 3 H Platelet Estimate NORMAL Prothrombin Time 12.8 Prothrombin Time Ratio 1.0 INR International Normalized Ratio 0.96 Sodium Level 110 *L Potassium Level 3.7 Chloride Level 75 L Carbon Dioxide Level 23 Anion Gap 16 # Blood Urea Nitrogen 12 Creatinine 0.38 L Glucose Level 132 # Hemoglobin A1c 5.7 Lactic Acid Level 1.6 Calcium Level 8.7 Magnesium Level 1.6 L Total Bilirubin 1.0 Direct Bilirubin 0.00 Indirect Bilirubin 1.0 Aspartate Amino Transf (AST/SGOT) 51 H Alanine Aminotransferase (ALT/SGPT) 31 Alkaline Phosphatase 111 B-Type Natriuretic Peptide 4990 H Total Protein 7.2 Albumin 3.5 Globulin 3.70 H Albumin/Globulin Ratio 0.94 Triglycerides Level 63 Cholesterol Level 159 LDL Cholesterol, Calculated 70 HDL Cholesterol 76 Cholesterol/HDL Ratio 2.0 Thyroid Stimulating Hormone (TSH) 2.410 Free Thyroxine 1.69 Creatine Kinase 261 H Creatine Kinase Index 6.0 Creatinine Kinase MB (Mass) 15.70 H Troponin I 2.080 *H Bedside Glucose 146 134 Test 03/19/17 12:55 Sodium Level 117 *L Potassium Level 3.8 Chloride Level 79 L Carbon Dioxide Level 24 Anion Gap 18 H Blood Urea Nitrogen 13 Creatinine 0.53 Glucose Level 124 Calcium Level 8.6 Medications Medications Current Medications Sodium Chloride (NS) 1,000 ml @ 75 mls/hr [id number] IV ; Start 03/19/17 at 00:00 Pantoprazole (Protonix Iv) 40 mg DAILY@06 IV Last administered on 03/19/17t 06: 49; Admin Dose 40 MG; Start 03/19/17 at 06:00 Diagnostic Test (Pha) (Accu-Chek) 1 ea 02 XX ; Start 03/19/17 at 02:00 Diagnostic Test (Pha) (Accu-Chek) 1 ea 02 XX ; Start 03/19/17 at 02:00 Aspirin (Halfprin) 81 mg DAILY PO ; Start 03/19/17 at 09:00 Docusate Sodium (Colace) 100 mg BID PO ; Start 03/19/17 at 09:00 Ondansetron HCl (Zofran Inj) 4 mg Q6H PRN IV NAUSEA AND/OR VOMITING; Start at 00:00 Morphine Sulfate (morphine) 2 mg Q4H PRN IV pain; Start 03/19/17 at 00:00 Lorazepam (Ativan) 1 mg Q6H PRN IV agitation and anxiety; Start 03/19/17 at 00: 00 Miscellaneous Information 1 ea NOTE XX ; Start 03/19/17 at 03:30 Glucose (Glutose) 15 gm Q15M PRN PO DECREASED GLUCOSE; Start 03/19/17 at 03:30 Glucose (Glutose) 22.5 gm Q15M PRN PO DECREASED GLUCOSE; Start 03/19/17 at 03: 30 Dextrose (D50w Syringe) 25 ml Q15M PRN IV DECREASED GLUCOSE; Start 03/19/17 at 03:30 Dextrose (D50w Syringe) 50 ml Q15M PRN IV DECREASED GLUCOSE; Start 03/19/17 at 03:30 Glucagon (Glucagen) 1 mg Q15M PRN IM DECREASED GLUCOSE; Start 03/19/17 at 03:30 Glucose (Glutose) 15 gm Q15M PRN BUCCAL DECREASED GLUCOSE; Start 03/19/17 at 03 :30 Labetalol HCl (Labetalol) 10 mg Q4H PRN IV SBP>160mmhg; Start 03/19/17 at 04:00 MIRANDA ZHAO Mar 19, 2017 14:14
[2017-03-19] MEDS: SOD CHLORIDE 0.9% 1,000 ML IV SCH ×2 (14:33)
--- NOTE | 2017-03-19 14:57 | RADRPT ---
Echocardiogram Report Patient Name: ROSA MARIA ORTIZ Gender: Female Date: 1930 Study Date: 19-Mar-2017 Outside Production Inspector: Huong [facility] Location: 101 Ref. Physician: HARESH LIM Quality: Adequate Procedures: Transthoracic echocardiogram with complete 2D, M-Mode, and doppler examination. Indications: STEMI. 2D/M Mode Doppler Measurement Value Normal Ranges Measurement Value Normal Ranges LVIDd 2D 4.4 3.5 - 5.6 cm AV Peak Harjeet 1.3 m/sec LVIDs 2D 3.1 2.1 - 4.1 cm AV Peak PG 7.0 mmHg FS 2D 29.5 % LVOT Peak Harjeet 0.9 m/sec LVPWd 2D 1.5 0.6 - 1.1 cm LVOT Peak PG 3.0 mmHg IVSd 2D 1.5 0.6 - 1.1 cm MV E Peak Harjeet 0.7 m/sec IVS/LVPW 2D 1.0 MV A Peak Harjeet 1.4 m/sec AoR Diam 2D 2.6 2.0 - 3.7 cm MV E/A 0.5 LA/Ao 2D 2 0 - 1 MV Decel Time 158 msec EDV 2D 84.0 cm3 MV E/A 0.5 ESV 2D 29.5 cm3 LA Dimen 2D 4.2 2.3 - 4.0 cm Findings Left Ventricle: Lower limits of normal systolic function. Normal left ventricular cavity size. Moderate concentric left ventricular hypertrophy. Ejection fraction is visually estimated at 50 55 %. Tissue Doppler/Mitral Doppler indices are consistent with impaired relaxation (Stage I diastolic dysfunction). These segments of the LV are hypokinetic inferior mid segment. Right Ventricle: Normal right ventricular size. Normal right ventricular systolic function. Left Atrium: There is mild enlargement of left atrium. Right Atrium: The right atrium is normal in size. Mitral Valve: Mild mitral leaflet calcification. Mild mitral annular calcification. Trace mitral regurgitation. Aortic Valve: Aortic sclerosis without stenosis. Trace aortic valve regurgitation. Tricuspid Valve: Normal appearance of the tricuspid valve. Unable to obtain RVSP due to minimal presence of tricuspid regurgitation. There is trace tricuspid regurgitation. Pericardium: Normal pericardium with no significant pericardial effusion. Aorta: Normal aortic root. IVC: Normal size and normal respiratory collapse consistent with normal right atrial pressure. Conclusions 1.Lower limits of normal systolic function. Normal left ventricular cavity size. Moderate concentric left ventricular hypertrophy. Ejection fraction is visually estimated at 50- 55 %. Tissue Doppler/Mitral Doppler indices are consistent with impaired relaxation (Stage I diastolic dysfunction). These segments of the LV are hypokinetic inferior mid segment. 2.There is mild enlargement of left atrium. 3.Mild mitral leaflet calcification. Mild mitral annular calcification. Trace mitral regurgitation. 4.Aortic sclerosis without stenosis. Trace aortic valve regurgitation. 5.Normal appearance of the tricuspid valve. Unable to obtain RVSP due to minimal presence of tricuspid regurgitation. There is trace tricuspid regurgitation. Electronically Signed By: Haresh Lim 19-Mar-2017 14:57:03 -0700 Patient Name: ROSA MARIA ORTIZ Study Date: 19-Mar-2017 [id number]
--- NOTE | 2017-03-19 16:16 | CONS ---
Date/Time of Note Date/Time of Note DATE: 03/19/17 TIME: 16:10 Consult Date/Type/Reason Admit Date/Time Mar 18, 2017 at 21:40 Initial Consult Date 03/18/17 Type of Consultation: interventional card Ordering Provider: JOANA HANSON MD Subjective CARDIOLOGY FOLLOW UP / Critical care follow up note: Subjective: Case discussed with the staff with the physician as well as multiple family members at the bedtime. Patient has remained mostly nonverbal throughout the night. Intermittently answers questions though. He denies any chest pain or pressure to me. Has mild tenderness at the right groin area. No bleeding has been reported. She remains in intensive care unit with close monitoring. OBJECTIVE: General: elderly female. no acute distress HEENT: NC/AT. pupils are equal. round. NECK: NO JVD. no stridor. CV: RRR. systolic murmur; no gallop or rubs. PULM: no wheezing or rhonchi. GI: SOFT, NT, ND, no rebound or guarding Extremity: trace B/L LE edema. no clubbing. neuro: opens her eyes. oriented x 1 Psych: calm rectal: deferred Derm: diffuse and multiple echymosis and bruises and superficial laceration on the skin. ECG initially showed NSR normal repeat ECG NSR inferior STEMI echo was personally reviewed: 1. Lower limits of normal systolic function. Normal left ventricular cavity size. Moderate concentric left ventricular hypertrophy. Ejection fraction is visually estimated at 50- 55 %. Tissue Doppler/Mitral Doppler indices are consistent with impaired relaxation (Stage I diastolic dysfunction). These segments of the LV are hypokinetic inferior mid segment. 2. There is mild enlargement of left atrium. 3. Mild mitral leaflet calcification. Mild mitral annular calcification. Trace mitral regurgitation. 4. Aortic sclerosis without stenosis. Trace aortic valve regurgitation. 5. Normal appearance of the tricuspid valve. Unable to obtain RVSP due to minimal presence of tricuspid regurgitation. There is trace tricuspid regurgitation. Objective Vital Signs Date Time Temp Pulse Resp B/P Pulse Ox O2 Delivery O2 Flow Rate FiO2 03/19/17 14:00 80 19 126/71 100 Nasal Cannula 03/19/17 12:00 99.2 03/19/17 08:00 2.0 Intake and Output 03/18/17 03/18/17 03/19/17 15:00 23:00 07:00 Output Total 100 ml Balance -100 ml Results/Medications Result Diagram: 03/19/17 0450 03/19/17 1255 Results 24 hrs Laboratory Tests Test 03/18/17 20:57 03/18/17 21:20 03/19/17 01:15 03/19/17 02:56 Bedside Glucose 208 138 White Blood Count 11.4 #H Red Blood Count 3.71 L Hemoglobin 12.2 Hematocrit 33.9 L Mean Corpuscular Volume 91.4 Mean Corpuscular Hemoglobin 32.9 Mean Corpuscular Hemoglobin Concent 36.0 Red Cell Distribution Width 12.1 Platelet Count 253 Mean Platelet Volume 11.1 H Neutrophils % 82.3 H Lymphocytes % 12.7 L Monocytes % 4.3 Eosinophils % 0.1 Basophils % 0.1 Nucleated Red Blood Cells % 0.0 Neutrophils # (Manual) 9.4 H Lymphocytes # 1.5 Monocytes # 0.5 Eosinophils # 0.0 Basophils # 0.0 Nucleated Red Blood Cells # 0.0 Prothrombin Time 12.5 Prothrombin Time Ratio 1.0 INR International Normalized Ratio 0.93 Activated Partial Thromboplast Time 32.1 Sodium Level 114 *L Potassium Level 3.8 Chloride Level 75 #L Carbon Dioxide Level 17 #L Anion Gap 26 #H Blood Urea Nitrogen 10 Creatinine 0.41 L Glucose Level 196 Calcium Level 8.5 Total Bilirubin 0.7 Direct Bilirubin 0.00 Indirect Bilirubin 0.7 Aspartate Amino Transf (AST/SGOT) 39 Alanine Aminotransferase (ALT/SGPT) 38 Alkaline Phosphatase 130 H Troponin I < 0.012 Total Protein 8.1 Albumin 4.3 Globulin 3.80 H Albumin/Globulin Ratio 1.13 Lactic Acid Level 2.5 *H Lipase 72 Carcinoembryonic Antigen 3.8 CA 19-9 Antigen 19.2 CA 125 Antigen 7.9 Test 03/19/17 04:50 03/19/17 05:05 03/19/17 08:34 03/19/17 12:19 White Blood Count 13.4 H Red Blood Count 3.76 L Hemoglobin 12.0 Hematocrit 32.7 L Mean Corpuscular Volume 87.0 Mean Corpuscular Hemoglobin 31.9 Mean Corpuscular Hemoglobin Concent 36.7 Red Cell Distribution Width 11.9 Platelet Count 235 Mean Platelet Volume 10.9 H Segmented Neutrophils % (Manual) 80 H Lymphocytes % (Manual) 10 L Monocytes % (Manual) 10 Absolute Lymphocytes (Manual) 1.3 Absolute Monocytes (Manual) 1.3 H Thrombocytosis 3 H Platelet Estimate NORMAL Prothrombin Time 12.8 Prothrombin Time Ratio 1.0 INR International Normalized Ratio 0.96 Sodium Level 110 *L Potassium Level 3.7 Chloride Level 75 L Carbon Dioxide Level 23 Anion Gap 16 # Blood Urea Nitrogen 12 Creatinine 0.38 L Glucose Level 132 # Hemoglobin A1c 5.7 Lactic Acid Level 1.6 Calcium Level 8.7 Magnesium Level 1.6 L Total Bilirubin 1.0 Direct Bilirubin 0.00 Indirect Bilirubin 1.0 Aspartate Amino Transf (AST/SGOT) 51 H Alanine Aminotransferase (ALT/SGPT) 31 Alkaline Phosphatase 111 B-Type Natriuretic Peptide 4990 H Total Protein 7.2 Albumin 3.5 Globulin 3.70 H Albumin/Globulin Ratio 0.94 Triglycerides Level 63 Cholesterol Level 159 LDL Cholesterol, Calculated 70 HDL Cholesterol 76 Cholesterol/HDL Ratio 2.0 Thyroid Stimulating Hormone (TSH) 2.410 Free Thyroxine 1.69 Creatine Kinase 261 H Creatine Kinase Index 6.0 Creatinine Kinase MB (Mass) 15.70 H Troponin I 2.080 *H Bedside Glucose 146 134 Test 03/19/17 12:55 Sodium Level 117 *L Potassium Level 3.8 Chloride Level 79 L Carbon Dioxide Level 24 Anion Gap 18 H Blood Urea Nitrogen 13 Creatinine 0.53 Glucose Level 124 Osmolality 240 L Calcium Level 8.6 Medications Current Medications Sodium Chloride (NS) 1,000 ml @ 75 mls/hr [id number] IV Last administered on 03/19 14:33; Admin Dose 75 MLS/HR; Start 03/19/17 at 00:00 Diagnostic Test (Pha) (Accu-Chek) 1 ea 02 XX ; Start 03/19/17 at 02:00 Aspirin (Halfprin) 81 mg DAILY PO ; Start 03/19/17 at 09:00 Docusate Sodium (Colace) 100 mg BID PO ; Start 03/19/17 at 09:00 Ondansetron HCl (Zofran Inj) 4 mg Q6H PRN IV NAUSEA AND/OR VOMITING; Start at 00:00 Morphine Sulfate (morphine) 2 mg Q4H PRN IV pain; Start 03/19/17 at 00:00 Lorazepam (Ativan) 1 mg Q6H PRN IV agitation and anxiety Last administered on 14:57; Admin Dose 1 MG; Start 03/19/17 at 00:00 Miscellaneous Information 1 ea NOTE XX ; Start 03/19/17 at 03:30 Glucose (Glutose) 15 gm Q15M PRN PO DECREASED GLUCOSE; Start 03/19/17 at 03:30 Glucose (Glutose) 22.5 gm Q15M PRN PO DECREASED GLUCOSE; Start 03/19/17 at 03: 30 Dextrose (D50w Syringe) 25 ml Q15M PRN IV DECREASED GLUCOSE; Start 03/19/17 at 03:30 Dextrose (D50w Syringe) 50 ml Q15M PRN IV DECREASED GLUCOSE; Start 03/19/17 at 03:30 Glucagon (Glucagen) 1 mg Q15M PRN IM DECREASED GLUCOSE; Start 03/19/17 at 03:30 Glucose (Glutose) 15 gm Q15M PRN BUCCAL DECREASED GLUCOSE; Start 03/19/17 at 03 :30 Labetalol HCl 10 mg 10 mg Q4H PRN IV SBP>160mmhg; Start 03/19/17 at 04:00 Levetiracetam (Keppra 500 Mg/ 100ml (Pmx)) 100 ml @ 400 mls/hr Q12 IVPB ; Start 03/19/17 at 21:00 Famotidine (Pepcid Iv) 20 mg DAILY IV ; Start 03/20/17 at 09:00 Assessment/Plan Chief Complaint/Hosp Course 1. Transient Inferior STEMI: but catherine angio did not show any flow limiting obstruction ASA daily will add NTG 2. severe hypo Na: f/u with renal rec 3. HTN: Under control now. 4. ?hx Dyslipidemia: under good control now 5. altered LOC/ encephalopathy: etiology unclear. ? related to hypoNa. f/u with neurology rec. 6. diffuse echymosis/ bruisis and skin abrasions ? hx of steroid use? 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 7. abnormal EC. metabolic acidosis: defer to IM. 9. hyperglycemia. : Improved. HgbA1c is wnl. PLAN: Admited to ICU IV fluid as per IM/ Renal f/u on Na level. ASA daily echo shows preserved LV function. NTG ptach More than 37 minutes of critical care time was spent in management and treatment of this patient, excluding any procedures You for his referral. We will continue to follow along with you HARESH BAIG Problems: HARESH BAIG MD Mar 19, 2017 16:16
[2017-03-19] MEDS: ASPIRIN 300 MG SUPP PR SCH (16:30)
[2017-03-19 16:36] LABS: CALCIUM 8.5 mg/dl (8.4-10.2); CREATININE 0.46 mg/dl (0.44-1.00); POTASSIUM 3.6 mmol/L (3.5-5.1)
[2017-03-19 18:02] LABS: ADD UMIC NO; UR ASCORBIC ACID NEGATIVE (NEGATIVE); UR BILIRUBIN (Dip) NEGATIVE (NEGATIVE); UR BLOOD (Dip) NEGATIVE (NEGATIVE); UR CLARITY CLEAR (CLEAR); UR COLOR STRAW (YELLOW); UR GLUCOSE (Dip) NEGATIVE (NEGATIVE); UR KETONES (Dip) NEGATIVE (NEGATIVE); UR LEUKOCYTE ESTERASE (Dip) NEGATIVE Leu/ul (NEGATIVE); UR NITRITE (Dip) NEGATIVE (NEGATIVE); UR SPECIFIC GRAVITY (Dip) 1.014 (1.003-1.030); UR TOTAL PROTEIN (Dip) NEGATIVE (NEGATIVE); UR UROBILINOGEN (Dip) NEGATIVE (NEGATIVE)
[2017-03-19] MEDS: NITROGLYCERIN 0.1 MG/HR PATCH TRANSDERM SCH (18:02)
[2017-03-19] MEDS ORDERED: DILTIAZEM 25 MG INJ ONE (20:15)
[2017-03-19] MEDS ORDERED: POTASSIUM CHLORIDE 20 MEQ in SOD CHLORIDE 0.9% 100 ML IVPB ONE (20:30)
[2017-03-19] MEDS ORDERED: DIGOXIN 500 MCG INJ IV ONE (20:30)
[2017-03-19] MEDS ORDERED: DILTIAZEM 25 MG INJ IV ONE (20:30)
[2017-03-19] MEDS: LEVETIRACETAM 500 MG (PMX) 100 ML IVPB SCH (20:38)
[2017-03-19 20:42] LABS: CALCIUM 8.6 mg/dl (8.4-10.2); CREATININE 0.52 mg/dl (0.44-1.00); POTASSIUM 3.7 mmol/L (3.5-5.1)
--- NOTE | 2017-03-19 21:02 | CONS ---
DATE OF ADMISSION: 03/18/2017 DATE OF CONSULTATION: 03/19/2017 REASON FOR CONSULTATION: Hyponatremia. REQUESTING PHYSICIAN: Dr. Macdonald. HISTORY OF PRESENT ILLNESS: This is an 86-year-old female with a past medical history of hypertension and history of kidney stones who presents to [facility] due to elevated blood pressure. The patient is having 2 day period of abdominal discomfort, nausea, generalized weakness and feeling ill. The patient in the emergency room, had laboratory data drawn which showed a sodium 114. CT abdomen and pelvis showed no acute findings. The patient's EKG showed ST elevation myocardial infarction and was brought to the emergency room and taken to [facility]. Angiogram, however, did not show any obstructive coronary lesions and was felt possible coronary spasm. The patient, however, was severely hyponatremic and admitted to the intensive care unit and placed on 3 percent sodium chloride. RENAL HISTORY: The patient takes hydrochlorothiazide in an outpatient setting. The patient is a poor historian, but has had previous episodes of hyponatremia with previous sodium levels of 127, which was noted on 03/18/2017. PAST MEDICAL HISTORY: Hypertension and history of kidney stones. PAST SURGICAL HISTORY: Status post cholecystectomy and history of abdominal surgery. SOCIAL HISTORY: Does not smoke. FAMILY HISTORY: Noncontributory. MEDICATION: The patient's medications have been reviewed. REVIEW OF SYSTEMS: Fourteen point review of systems conducted. Pertinent positives in HPI, otherwise negative. PHYSICAL EXAMINATION: VITAL SIGNS: Blood pressure is 118/67, respirations 19, pulse 76, temperature 98.2. I and Os, the patient about 300 cc urinary output. LABORATORY: Shows white count 13.4, hemoglobin 12.0, and platelet count is 235. The patient's troponin 2.08. Sodium 110, potassium 3.7, chloride 75, BUN 12, and creatinine 0.38. IMPRESSION AND PLAN: This is an 86-year-old female who presents with: 1. Acute hyponatremia. Etiology is likely due to hydrochlorothiazide effect with questionable history of underlying syndrome of inappropriate antidiuretics hormone (SIADH). The patient's recent sodium level at 8:27 was 127 mEq/L. The patient's repeat sodium level was 110 mEq/L, this occurred in a 12 hour period. The patient received IV hydration. Plan at this point is to do a full evaluation. We will check urine sodium, urine osmolarity, and serum osmolarity. The patient has been initiated 3 percent sodium chloride. We will continue to monitor serum sodium levels every 2-4 hours with a goal of correction of no more than 8-10 mEq in the next 24 hours. Otherwise continue to monitor closely. We will hold hydrochlorothiazide. 2. Acute encephalopathy. Etiology is likely secondary to severe hyponatremia. The patient is current on 3 percent sodium chloride. Monitor closely. 3. ST elevation myocardial infarction (ND). Etiology is likely from coronary spasm. Patient status post cardiac cath with clean coronaries. Continue medical management. Follow up with Cardiology. 4. Acute seizure episode likely secondary to hyponatremia. We will continue to monitor closely. Consider a CT scan of the head. 5. Hypertension, improved. 6. Diffuse ecchymoses, continuing to monitor. Thank you, Dr. Macdonald for this interesting consult. It will be a pleasure to follow patient with you throughout the hospital course. Dictated By: Varinder Jeffries DO /sary/yoshi /Document#: [id number]
[2017-03-19] MEDS ORDERED: AMIODARONE 150MG/D5W BOLUS 100 ML ONE (21:24)
[2017-03-19] MEDS ORDERED: AMIODARONE 150MG/D5W BOLUS 100 ML IV ONE (21:30)
[2017-03-19] MEDS ORDERED: AMIODARONE 900 MG in DEXTROSE 5% 482 ML IV SCH (21:30)
[2017-03-20] VITALS (23 sets, daily range): BP systolic 90–140; BP diastolic 40–63; PULSE 68–85; RESP 14–26
[2017-03-20] MEDS ORDERED: PENDING SANTYL ORDER FOR WOUND CARE XX PRN (01:30)
[2017-03-20] MEDS: ACCU-CHEK XX SCH (01:50)
[2017-03-20] MEDS ORDERED: DIPHENHYDRAMINE 50 MG CAP PO PRN (02:00)
[2017-03-20] MEDS ORDERED: ACETAMINOPHEN 325 MG TAB ONE (02:08)
[2017-03-20] MEDS: ACETAMINOPHEN 325 MG TAB PO PRN ×3 (02:10→20:12)
[2017-03-20] MEDS: SOD CHLORIDE 0.9% 1,000 ML IV SCH ×2 (02:40→06:54)
--- NOTE | 2017-03-20 03:25 | PRO ---
DATE OF PROCEDURE: 03/19/2017 EEG Report INDICATION: The patient is an 86-year-old lady with severe hyponatremia and acute seizure episode. FINDINGS: A routine EEG was recorded digitally. Scalp to scalp and scalp to ear montages were recorded and reviewed. All impedances were measured and recorded. Disc electrodes were placed in accordance to International 10/20 system of electrode placements. Symmetrically distributed background activity of medium amplitude ranging in frequency between 4-6 cycles per second was seen. At times background gets slightly faster after 8 cycles per second. Photic stimulation produces no definite driving. No epileptiform activity was seen. No signs of ongoing electrographic seizures or lateralized slowing, IMPRESSION: Abnormal study secondary to background slowing which could reflect presence of encephalopathy. Finding is not specific, commonly seen in context of toxic metabolic encephalopathy. Please correlate clinically. Dictated By: Juvencio Bender MD /sary/yumiko /Document#: [id number] SHANNAN
[2017-03-20 06:16] LABS: BASOPHILS % 0.1 % (0.0-2.0); EOSINOPHILS # 0.1 10^3/ul (0.0-0.5); EOSINOPHILS % 1.4 % (0.0-7.0); HEMATOCRIT 30.3 % (37.0-47.0); HEMOGLOBIN 10.8 g/dl (12.0-16.0); LYMPHOCYTES # 1.2 10^3/ul (0.8-2.9); LYMPHOCYTES % 15.2 % (15.0-51.0); MEAN CORPUSCULAR HEMOGLOBIN 32.1 pg (29.0-33.0); MEAN CORPUSCULAR HGB CONC 35.6 g/dl (32.0-37.0); MEAN CORPUSCULAR VOLUME 90.2 fl (82.0-101.0); MEAN PLATELET VOLUME 10.4 fl (7.4-10.4); MONOCYTE # 0.6 10^3/ul (0.3-0.9); MONOCYTES % 7.9 % (0.0-11.0); NEUTROPHILS % 74.9 % (39.0-77.0); PLATELET COUNT 229 10^3/UL (140-415); RED BLOOD COUNT 3.36 10^6/ul (4.20-5.40); RED CELL DISTRIBUTION WIDTH 12.7 % (11.5-14.5); WHITE BLOOD COUNT 7.8 10^3/ul (4.8-10.8)
[2017-03-20 06:54] LABS: CK-MB 7.27 ng/ml (0.0-2.4)
[2017-03-20 06:56] LABS: CALCIUM 8.2 mg/dl (8.4-10.2); CREATININE 0.54 mg/dl (0.44-1.00); MAGNESIUM 2.7 mg/dl (1.7-2.5); PHOSPHORUS 3.2 mg/dl (2.5-4.9); POTASSIUM 3.7 mmol/L (3.5-5.1)
[2017-03-20 07:11] LABS: TROPONIN-I 0.943 ng/ml (0.00-0.12)
[2017-03-20] MEDS: ASPIRIN 300 MG SUPP PR SCH (08:25)
--- NOTE | 2017-03-20 08:34 | PN ---
DATE: 03/20/2017 SUBJECTIVE DATA: The patient is stable. No events overnight. The patient did receive 3 percent sodium chloride. The patient's altered mental status and confusion have improved. OBJECTIVE DATA: VITAL SIGNS: Blood pressure 110/51, respirations 25, pulse 78, temperature 98.5. HEENT: Head is normocephalic. NECK: Supple. HEART: Regular rate. LUNGS: Diminished breath sounds at the base. ABDOMEN: Soft, nontender to palpation. No guarding. EXTREMITIES: Negative for clubbing, cyanosis. No edema. DERMATOLOGIC: The patient has multiple ecchymosis across chest, abdomen and leg. MUSCULOSKELETAL: No joint effusion. NEUROLOGIC: No focal change in exam. LABORATORY AND DIAGNOSTIC DATA: White count 7.8, hemoglobin 10.8, hematocrit 33.3, platelet count 229. Sodium 124, potassium 2.7, bchloride 90, BUN 13, creatinine 0.54. Urinalysis shows a FENa less 1 percent. Urine osmolality 217. Blood cultures have been negative. ASSESSMENT AND PLAN: 1. Acute hyponatremia etiology secondary to volume depletion and hydrochlorothiazide effect. The patient's urinary sodium was less than 5, FENa less than 1 percent, consistent with prerenal volume depletion. The patient's etiology of hyponatremia is acute as sodium levels rapidly declined from 127-110 mEq of sodium. The patient therefore was volume resuscitated and given 3 percent sodium chloride. Sodium levels appropriately increased from 114 to 124 mEq in a 24 hour period. At this point, would continue volume resuscitation. Continue to monitor serum sodium levels. Please note, the patient's urine osmolality shows the patient is able to appropriately dilute urine as urine osmolalities were 217. 2. Acute encephalopathy etiology secondary to severe hyponatremia, improving. 3. Transient ST-elevation. Etiology may be secondary to coronary spasm. The patient is status post cardiac catheterization with clean coronaries. Continue to monitor. 4. Acute seizure, possibly secondary to hyponatremia, improved. Follow up with Neurology. 5. Hypertension, improved. 6. Diffuse ecchymosis. Continue to monitor. Dictated By: Varinder Jeffries DO /sary/robbie /Document#: [id number]
[2017-03-20] MEDS: DOCUSATE SODIUM 100 MG CAP PO SCH ×2 (08:36→20:12)
[2017-03-20] MEDS: ASPIRIN (EC) 81 MG TAB PO SCH (08:36)
[2017-03-20] MEDS: LEVETIRACETAM 500 MG (PMX) 100 ML IVPB SCH ×2 (08:36→20:34)
[2017-03-20] MEDS: NITROGLYCERIN 0.1 MG/HR PATCH TRANSDERM SCH ×3 (08:37→12:49)
[2017-03-20] MEDS: INSULIN ASPART [NOVOLOG] 3 ML PEN SC SCH ×4 (08:37→20:15)
[2017-03-20] MEDS ORDERED: FAMOTIDINE 20 MG INJ IV SCH (09:00)
[2017-03-20] MEDS: COLLAGENASE 30 GM TUBE TOP SCH (09:56)
--- NOTE | 2017-03-20 10:22 | RADRPT ---
PROCEDURE: MR Abdomen with and without contrast CLINICAL INDICATION: Abdominal pain. TECHNIQUE: Protocol: Routine MRI of the abdomen performed with and without contrast Contrast: 20 cc of intravenous Magnevist. COMPARISON: Ultrasound, 03/19/2017. CT, 03/18/2017 FINDINGS: Liver demonstrates homogeneous signal and enhancement without a focal lesion. Gallbladder is surgically absent. There is mild biliary dilatation without filling defect or choled ocholithiasis. Spleen and adrenal glands are unremarkable. There is a tiny cystic lesion identified in the uncinat e process of the pancreas measuring up to 7 mm. The main pancreatic is nondilated. Renal enhancement is symmetric without hydronephrosis. Visualized bowel is normal in caliber without mural thickening. There is a small duodenal diverticu lum. No lymphadenopathy. No free fluid or fluid collection. Marrow signal is unremarkable. IMPRESSION: Examination is limited due to the patient's inability to sustain breathhold, resulting in significan t respiratory motion artifact. Subcentimeter cystic lesion identified in the uncinate process of the pancreas is nonspecific in raquel earance but likely benign. Surgical absence of the gallbladder. There is no obvious filling defect or choledocholithiasis. RPTAT: EE .Saeed Helm MD, MD Date Time Electronically viewed and signed by .Saeed Helm MD, MD on 03/20/2017 10:27 .C/
--- NOTE | 2017-03-20 11:36 | CONS ---
Date/Time of Note Date/Time of Note DATE: 03/20/17 TIME: 11:30 Assessment/Plan Assessment/Plan Chief Complaint/Hosp Course 86 yo female with hx of HTN admitted with severe hyponatremia Na: 114 on admission, STEMI s/p cardiac catheterization, seizure, new onset afib. Seizure likely secondary to metabolic abnormality, no further seizures. Recommendations: Continue Sodium correction Recommend MRI Brain w/o contrast to evaluate for acute ischemic injury given new onset afib and seizure continue on aspirin 81 mg daily EEG to be reviewed done on 03/19, no AED at this time will follow Problems: Consultation Date/Type/Reason Admit Date/Time Mar 18, 2017 at 21:40 Date of Consultation: Mar 20, 2017 Type of Consultation: Neurology Reason for Consultation seizure eval Referring Provider: MIRANDA ZHAO Hx of Present Illness 78 year old female with history of hypertension, newly diagnosed afib admitted with STEMI s/p cardiac catheterization shows no evidence of obstructive disease with severe hyponatremia: 114, lactic acidosis and elevated troponins. On arrival patient was unresponsive, only one seizure per history obtained from family. Head CT on arrival showed no evidence of acute ischemic disease. No further seizures since admission. Psychological: confusion Social History Smoking Status: Never smoker Exam/Review of Systems Vital Signs Vitals Vital Signs Date Time Temp Pulse Resp B/P Pulse Ox O2 Delivery O2 Flow Rate FiO2 03/20/17 10:00 72 20 120/48 100 Nasal Cannula 2.0 03/20/17 08:00 98.1 Intake and Output 03/19/17 03/19/17 03/20/17 15:00 23:00 07:00 Intake Total 478.4 ml 577.1 ml Output Total 750 ml 390 ml 480 ml Balance -750 ml 88.4 ml 97.1 ml Exam awake alert oriented to self, hospital frail appearing diffuse ecchymosis in extremities follows commands CN: II-XII grossly intact Motor: lifts all extremities anti-gravity poor effort throughout no ataxia Sensory intact Reflexes 1+ throughout toes down Results Result Diagram: 03/20/17 0600 03/20/17 0600 Results 24 hrs Laboratory Tests Test 03/19/17 12:19 03/19/17 12:55 03/19/17 16:05 03/19/17 16:40 Bedside Glucose 134 Sodium Level 117 *L 116 *L Potassium Level 3.8 3.6 Chloride Level 79 L 79 L Carbon Dioxide Level 24 25 Anion Gap 18 H 16 Blood Urea Nitrogen 13 12 Creatinine 0.53 0.46 Glucose Level 124 113 Osmolality 240 L Calcium Level 8.6 8.5 Urine Color STRAW Urine Clarity CLEAR Urine pH 6.0 Urine Specific [place] 1.014 Urine Ketones NEGATIVE Urine Nitrite NEGATIVE Urine Bilirubin NEGATIVE Urine Urobilinogen NEGATIVE Urine Leukocyte Esterase NEGATIVE Urine Hemoglobin NEGATIVE Urine Osmolality 217 L Urine Random Creatinine 23.35 Urine Random Sodium < 5 L Urine Glucose NEGATIVE Urine Total Protein 90.0 H Test 03/19/17 17:56 03/19/17 20:10 03/19/17 20:37 03/20/17 06:00 Bedside Glucose 112 142 Sodium Level 120 L 124 L Potassium Level 3.7 3.7 Chloride Level 82 L 90 L Carbon Dioxide Level 25 25 Anion Gap 17 H 13 Blood Urea Nitrogen 11 13 Creatinine 0.52 0.54 Glucose Level 128 119 Calcium Level 8.6 8.2 L White Blood Count 7.8 # Red Blood Count 3.36 L Hemoglobin 10.8 L Hematocrit 30.3 L Mean Corpuscular Volume 90.2 Mean Corpuscular Hemoglobin 32.1 Mean Corpuscular Hemoglobin Concent 35.6 Red Cell Distribution Width 12.7 Platelet Count 229 Mean Platelet Volume 10.4 Neutrophils % 74.9 Lymphocytes % 15.2 Monocytes % 7.9 Eosinophils % 1.4 Basophils % 0.1 Nucleated Red Blood Cells % 0.0 Neutrophils # (Manual) 5.9 Lymphocytes # 1.2 Monocytes # 0.6 Eosinophils # 0.1 Basophils # 0.0 Nucleated Red Blood Cells # 0.0 Phosphorus Level 3.2 Magnesium Level 2.7 #H Creatine Kinase 172 Creatine Kinase Index 4.2 Creatinine Kinase MB (Mass) 7.27 H Troponin I 0.943 *H Test 03/20/17 08:34 Bedside Glucose 112 Medications Medications Current Medications Sodium Chloride (NS) 1,000 ml @ 50 mls/hr Q20H IV Last administered on 06:54; Admin Dose 75 MLS/HR; Start 03/19/17 at 00:00 Diagnostic Test (Pha) (Accu-Chek) 1 ea 02 XX ; Start 03/19/17 at 02:00 Aspirin (Halfprin) 81 mg DAILY PO Last administered on 03/20/17 08:36; Admin Dose 81 MG; Start 03/19/17 at 09:00 Docusate Sodium (Colace) 100 mg BID PO Last administered on 03/20/17 08:36; Admin Dose 100 MG; Start 03/19/17 at 09:00 Ondansetron HCl (Zofran Inj) 4 mg Q6H PRN IV NAUSEA AND/OR VOMITING; Start at 00:00 Morphine Sulfate (morphine) 2 mg Q4H PRN IV pain; Start 03/19/17 at 00:00 Lorazepam (Ativan) 1 mg Q6H PRN IV agitation and anxiety Last administered on 14:57; Admin Dose 1 MG; Start 03/19/17 at 00:00 Miscellaneous Information 1 ea NOTE XX ; Start 03/19/17 at 03:30 Glucose (Glutose) 15 gm Q15M PRN PO DECREASED GLUCOSE; Start 03/19/17 at 03:30 Glucose (Glutose) 22.5 gm Q15M PRN PO DECREASED GLUCOSE; Start 03/19/17 at 03: 30 Dextrose (D50w Syringe) 25 ml Q15M PRN IV DECREASED GLUCOSE; Start 03/19/17 at 03:30 Dextrose (D50w Syringe) 50 ml Q15M PRN IV DECREASED GLUCOSE; Start 03/19/17 at 03:30 Glucagon (Glucagen) 1 mg Q15M PRN IM DECREASED GLUCOSE; Start 03/19/17 at 03:30 Glucose (Glutose) 15 gm Q15M PRN BUCCAL DECREASED GLUCOSE; Start 03/19/17 at 03 :30 Labetalol HCl 10 mg 10 mg Q4H PRN IV SBP>160mmhg; Start 03/19/17 at 04:00 Levetiracetam (Keppra 500 Mg/ 100ml (Pmx)) 100 ml @ 400 mls/hr Q12 IVPB Last administered on 03/20/17 08:36; Admin Dose 400 MLS/HR; Start 03/19/17 at 21:00 Famotidine (Pepcid Iv) 20 mg DAILY IV Last administered on 03/20/17 08:36; Admin Dose 20 MG; Start 03/20/17 at 09:00 Nitroglycerin (Nitroglycerin 0.1 Mg/Hr) 1 patch DAILY TRANSDERM Last administered on 03/19/17 18:02; Admin Dose 1 PATCH; Start 03/19/17 at 17:30 Aspirin 300 mg 300 mg DAILY CO ; Start 03/19/17 at 16:30 Amiodarone HCl/ Dextrose (Cordarone Iv/ D5W) 500 ml @ 0 mls/hr Q0M IV Last administered on 03/19/17 22:12; Admin Dose 33.4 MLS/HR; Start 03/19/17 at 21:30 ; Stop 03/20/17 at 21:29 Miscellaneous Information (Pending Santyl Order For Wound Care) This patient harrison... PRN PRN XX WOUND CARE; Start 03/20/17 at 01:30 Collagenase (Santyl) 1 applic DAILY TOP Last administered on 03/20/17 09:56; Admin Dose 1 APPLIC; Start 03/20/17 at 09:00 Acetaminophen (Tylenol Tab) 650 mg Q6H PRN PO PAIN AND OR ELEVATED TEMP Last administered on 03/20/17 02:10; Admin Dose 650 MG; Start 03/20/17 at 02:00 Diphenhydramine HCl (Benadryl) 50 mg Q6H PRN PO ITCHING; Start 03/20/17 at 02: 00 TATIANA YS MD Mar 20, 2017 11:36
--- NOTE | 2017-03-20 14:03 | PN ---
Date/Time of Note Date/Time of Note DATE: 03/20/17 TIME: 13:58 Assessment/Plan VTE Prophylaxis VTE Prophylaxis Intervention: SCD's Lines/Catheters IV [facility] Peripheral IV Assessment/Plan Chief Complaint/Hosp Course 1. Acute metabolic encephalopathy secondary to postictal state and/or hyponatremia-improved -Keppra twice daily for now -Neuro consultation appreciated 2. Severe hyponatremia thought to be causing #1-improving -Continue IV fluids now with normal saline -Nephrology consultation appreciated 3. Acute ST elevation myocardial infarction thought to be secondary to coronary vasospasm status post emergent angiogram with clean coronaries 4. Hypertension-stable 5. Pancreatic cystic structure on CT scan -MRI shows cystic structure that appears to be benign, no further workup Prophylaxis: SCDs Problems: Subjective 24 Hr Interval Summary Constitutional: no complaints Exam/Review of Systems Vital Signs Vitals Vital Signs Date Time Temp Pulse Resp B/P Pulse Ox O2 Delivery O2 Flow Rate FiO2 03/20/17 13:00 76 26 117/46 100 Nasal Cannula 2.0 03/20/17 12:00 97.8 Intake and Output 03/19/17 03/19/17 03/20/17 15:00 23:00 07:00 Intake Total 478.4 ml 577.1 ml Output Total 750 ml 390 ml 480 ml Balance -750 ml 88.4 ml 97.1 ml Exam Constitutional: alert Respiratory: clear to auscultation Cardiovascular: regular rate and rhythm Gastrointestinal: soft, No distended Musculoskeletal: nl extremities to inspection Results Result Diagram: 03/20/17 0600 03/20/17 0600 Results 24 hrs Laboratory Tests Test 03/19/17 16:05 03/19/17 16:40 03/19/17 17:56 03/19/17 20:10 Sodium Level 116 *L 120 L Potassium Level 3.6 3.7 Chloride Level 79 L 82 L Carbon Dioxide Level 25 25 Anion Gap 16 17 H Blood Urea Nitrogen 12 11 Creatinine 0.46 0.52 Glucose Level 113 128 Calcium Level 8.5 8.6 Urine Color STRAW Urine Clarity CLEAR Urine pH 6.0 Urine Specific [place] 1.014 Urine Ketones NEGATIVE Urine Nitrite NEGATIVE Urine Bilirubin NEGATIVE Urine Urobilinogen NEGATIVE Urine Leukocyte Esterase NEGATIVE Urine Hemoglobin NEGATIVE Urine Osmolality 217 L Urine Random Creatinine 23.35 Urine Random Sodium < 5 L Urine Glucose NEGATIVE Urine Total Protein 90.0 H Bedside Glucose 112 Test 03/19/17 20:37 03/20/17 06:00 03/20/17 08:34 03/20/17 11:38 Bedside Glucose 142 112 112 White Blood Count 7.8 # Red Blood Count 3.36 L Hemoglobin 10.8 L Hematocrit 30.3 L Mean Corpuscular Volume 90.2 Mean Corpuscular Hemoglobin 32.1 Mean Corpuscular Hemoglobin Concent 35.6 Red Cell Distribution Width 12.7 Platelet Count 229 Mean Platelet Volume 10.4 Neutrophils % 74.9 Lymphocytes % 15.2 Monocytes % 7.9 Eosinophils % 1.4 Basophils % 0.1 Nucleated Red Blood Cells % 0.0 Neutrophils # (Manual) 5.9 Lymphocytes # 1.2 Monocytes # 0.6 Eosinophils # 0.1 Basophils # 0.0 Nucleated Red Blood Cells # 0.0 Sodium Level 124 L Potassium Level 3.7 Chloride Level 90 L Carbon Dioxide Level 25 Anion Gap 13 Blood Urea Nitrogen 13 Creatinine 0.54 Glucose Level 119 Calcium Level 8.2 L Phosphorus Level 3.2 Magnesium Level 2.7 #H Creatine Kinase 172 Creatine Kinase Index 4.2 Creatinine Kinase MB (Mass) 7.27 H Troponin I 0.943 *H Medications Medications Current Medications Sodium Chloride (NS) 1,000 ml @ 50 mls/hr Q20H IV Last administered on 06:54; Admin Dose 75 MLS/HR; Start 03/19/17 at 00:00 Diagnostic Test (Pha) (Accu-Chek) 1 ea 02 XX ; Start 03/19/17 at 02:00 Aspirin (Halfprin) 81 mg DAILY PO Last administered on 03/20/17 08:36; Admin Dose 81 MG; Start 03/19/17 at 09:00 Docusate Sodium (Colace) 100 mg BID PO Last administered on 03/20/17 08:36; Admin Dose 100 MG; Start 03/19/17 at 09:00 Ondansetron HCl (Zofran Inj) 4 mg Q6H PRN IV NAUSEA AND/OR VOMITING; Start at 00:00 Morphine Sulfate (morphine) 2 mg Q4H PRN IV pain; Start 03/19/17 at 00:00 Lorazepam (Ativan) 1 mg Q6H PRN IV agitation and anxiety Last administered on 14:57; Admin Dose 1 MG; Start 03/19/17 at 00:00 Miscellaneous Information 1 ea NOTE XX ; Start 03/19/17 at 03:30 Glucose (Glutose) 15 gm Q15M PRN PO DECREASED GLUCOSE; Start 03/19/17 at 03:30 Glucose (Glutose) 22.5 gm Q15M PRN PO DECREASED GLUCOSE; Start 03/19/17 at 03: 30 Dextrose (D50w Syringe) 25 ml Q15M PRN IV DECREASED GLUCOSE; Start 03/19/17 at 03:30 Dextrose (D50w Syringe) 50 ml Q15M PRN IV DECREASED GLUCOSE; Start 03/19/17 at 03:30 Glucagon (Glucagen) 1 mg Q15M PRN IM DECREASED GLUCOSE; Start 03/19/17 at 03:30 Glucose (Glutose) 15 gm Q15M PRN BUCCAL DECREASED GLUCOSE; Start 03/19/17 at 03 :30 Labetalol HCl 10 mg 10 mg Q4H PRN IV SBP>160mmhg; Start 03/19/17 at 04:00 Levetiracetam (Keppra 500 Mg/ 100ml (Pmx)) 100 ml @ 400 mls/hr Q12 IVPB Last administered on 03/20/17 08:36; Admin Dose 400 MLS/HR; Start 03/19/17 at 21:00 Famotidine (Pepcid Iv) 20 mg DAILY IV Last administered on 03/20/17 08:36; Admin Dose 20 MG; Start 03/20/17 at 09:00 Nitroglycerin (Nitroglycerin 0.1 Mg/Hr) 1 patch DAILY TRANSDERM Last administered on 03/20/17 12:49; Admin Dose 1 PATCH; Start 03/19/17 at 17:30 Aspirin 300 mg 300 mg DAILY ID ; Start 03/19/17 at 16:30 Amiodarone HCl/ Dextrose (Cordarone Iv/ D5W) 500 ml @ 0 mls/hr Q0M IV Last administered on 03/19/17 22:12; Admin Dose 33.4 MLS/HR; Start 03/19/17 at 21:30 ; Stop 03/20/17 at 21:29 Miscellaneous Information [facility] This patient harrison... PRN PRN XX WOUND CARE; Start 03/20/17 at 01:30 Collagenase (Santyl) 1 applic DAILY TOP Last administered on 03/20/17 09:56; Admin Dose 1 APPLIC; Start 03/20/17 at 09:00 Acetaminophen (Tylenol Tab) 650 mg Q6H PRN PO PAIN AND OR ELEVATED TEMP Last administered on 03/20/17 12:54; Admin Dose 650 MG; Start 03/20/17 at 02:00 Diphenhydramine HCl (Benadryl) 50 mg Q6H PRN PO ITCHING; Start 03/20/17 at 02: 00 Famotidine (Pepcid) 20 mg DAILY PO ; Start 03/21/17 at 09:00 MIRANDA ZHAO Mar 20, 2017 14:03
[2017-03-20] MEDS ORDERED: POTASSIUM CHLORIDE (SR) 10 MEQ TAB PO ONE (15:00)
--- NOTE | 2017-03-20 15:04 | CONS ---
Date/Time of Note Date/Time of Note DATE: 03/20/17 TIME: 15:00 Consult Date/Type/Reason Admit Date/Time Mar 18, 2017 at 21:40 Initial Consult Date 03/18/17 Type of Consultation: Neurology Ordering Provider: MIRANDA ZHAO Subjective CARDIOLOGY FOLLOW UP / Critical care follow up note: Subjective: Case discussed with the staff with the physician as well as multiple family members at the bedtime. Patient is more responsive now. she went into Afib with RVR yesterday. I have started amiodarone drip and has converted back to NSR She remains in intensive care unit with close monitoring. OBJECTIVE: General: elderly female. no acute distress HEENT: NC/AT. pupils are equal. round. NECK: NO JVD. no stridor. CV: RRR. systolic murmur; no gallop or rubs. PULM: no wheezing or rhonchi. GI: SOFT, NT, ND, no rebound or guarding Extremity: trace B/L LE edema. no clubbing. neuro: Awake and alert/ oriented x 2 Psych: calm rectal: deferred Derm: diffuse and multiple echymosis and bruises and superficial laceration on the skin. ECG initially showed NSR normal repeat ECG NSR inferior STEMI echo was personally reviewed: 1. Lower limits of normal systolic function. Normal left ventricular cavity size. Moderate concentric left ventricular hypertrophy. Ejection fraction is visually estimated at 50- 55 %. Tissue Doppler/Mitral Doppler indices are consistent with impaired relaxation (Stage I diastolic dysfunction). These segments of the LV are hypokinetic inferior mid segment. 2. There is mild enlargement of left atrium. 3. Mild mitral leaflet calcification. Mild mitral annular calcification. Trace mitral regurgitation. 4. Aortic sclerosis without stenosis. Trace aortic valve regurgitation. 5. Normal appearance of the tricuspid valve. Unable to obtain RVSP due to minimal presence of tricuspid regurgitation. There is trace tricuspid regurgitation. Objective Vital Signs Date Time Temp Pulse Resp B/P Pulse Ox O2 Delivery O2 Flow Rate FiO2 03/20/17 14:00 77 24 97/40 100 Nasal Cannula 2.0 03/20/17 12:00 97.8 Intake and Output 03/19/17 03/19/17 03/20/17 15:00 23:00 07:00 Intake Total 478.4 ml 577.1 ml Output Total 750 ml 390 ml 480 ml Balance -750 ml 88.4 ml 97.1 ml Results/Medications Result Diagram: 03/20/17 0600 03/20/17 1410 Results 24 hrs Laboratory Tests Test 03/19/17 16:05 03/19/17 16:40 03/19/17 17:56 03/19/17 20:10 Sodium Level 116 *L 120 L Potassium Level 3.6 3.7 Chloride Level 79 L 82 L Carbon Dioxide Level 25 25 Anion Gap 16 17 H Blood Urea Nitrogen 12 11 Creatinine 0.46 0.52 Glucose Level 113 128 Calcium Level 8.5 8.6 Urine Color STRAW Urine Clarity CLEAR Urine pH 6.0 Urine Specific [place] 1.014 Urine Ketones NEGATIVE Urine Nitrite NEGATIVE Urine Bilirubin NEGATIVE Urine Urobilinogen NEGATIVE Urine Leukocyte Esterase NEGATIVE Urine Hemoglobin NEGATIVE Urine Osmolality 217 L Urine Random Creatinine 23.35 Urine Random Sodium < 5 L Urine Glucose NEGATIVE Urine Total Protein 90.0 H Bedside Glucose 112 Test 03/19/17 20:37 03/20/17 06:00 03/20/17 08:34 03/20/17 11:38 Bedside Glucose 142 112 112 White Blood Count 7.8 # Red Blood Count 3.36 L Hemoglobin 10.8 L Hematocrit 30.3 L Mean Corpuscular Volume 90.2 Mean Corpuscular Hemoglobin 32.1 Mean Corpuscular Hemoglobin Concent 35.6 Red Cell Distribution Width 12.7 Platelet Count 229 Mean Platelet Volume 10.4 Neutrophils % 74.9 Lymphocytes % 15.2 Monocytes % 7.9 Eosinophils % 1.4 Basophils % 0.1 Nucleated Red Blood Cells % 0.0 Neutrophils # (Manual) 5.9 Lymphocytes # 1.2 Monocytes # 0.6 Eosinophils # 0.1 Basophils # 0.0 Nucleated Red Blood Cells # 0.0 Sodium Level 124 L Potassium Level 3.7 Chloride Level 90 L Carbon Dioxide Level 25 Anion Gap 13 Blood Urea Nitrogen 13 Creatinine 0.54 Glucose Level 119 Calcium Level 8.2 L Phosphorus Level 3.2 Magnesium Level 2.7 #H Creatine Kinase 172 Creatine Kinase Index 4.2 Creatinine Kinase MB (Mass) 7.27 H Troponin I 0.943 *H Test 03/20/17 14:10 Sodium Level 126 L Medications Current Medications Sodium Chloride (NS) 1,000 ml @ 50 mls/hr Q20H IV Last administered on t 06:54; Admin Dose 75 MLS/HR; Start 03/19/17 at 00:00 Diagnostic Test (Pha) (Accu-Chek) 1 ea 02 XX ; Start 03/19/17 at 02:00 Aspirin (Halfprin) 81 mg DAILY PO Last administered on 03/20/17 08:36; Admin Dose 81 MG; Start 03/19/17 at 09:00 Docusate Sodium (Colace) 100 mg BID PO Last administered on 03/20/17 08:36; Admin Dose 100 MG; Start 03/19/17 at 09:00 Ondansetron HCl (Zofran Inj) 4 mg Q6H PRN IV NAUSEA AND/OR VOMITING; Start at 00:00 Morphine Sulfate (morphine) 2 mg Q4H PRN IV pain; Start 03/19/17 at 00:00 Lorazepam (Ativan) 1 mg Q6H PRN IV agitation and anxiety Last administered on 14:57; Admin Dose 1 MG; Start 03/19/17 at 00:00 Miscellaneous Information 1 ea NOTE XX ; Start 03/19/17 at 03:30 Glucose (Glutose) 15 gm Q15M PRN PO DECREASED GLUCOSE; Start 03/19/17 at 03:30 Glucose (Glutose) 22.5 gm Q15M PRN PO DECREASED GLUCOSE; Start 03/19/17 at 03: 30 Dextrose (D50w Syringe) 25 ml Q15M PRN IV DECREASED GLUCOSE; Start 03/19/17 at 03:30 Dextrose (D50w Syringe) 50 ml Q15M PRN IV DECREASED GLUCOSE; Start 03/19/17 at 03:30 Glucagon (Glucagen) 1 mg Q15M PRN IM DECREASED GLUCOSE; Start 03/19/17 at 03:30 Glucose (Glutose) 15 gm Q15M PRN BUCCAL DECREASED GLUCOSE; Start 03/19/17 at 03 :30 Labetalol HCl 10 mg 10 mg Q4H PRN IV SBP>160mmhg; Start 03/19/17 at 04:00 Levetiracetam (Keppra 500 Mg/ 100ml (Pmx)) 100 ml @ 400 mls/hr Q12 IVPB Last administered on 03/20/17 08:36; Admin Dose 400 MLS/HR; Start 03/19/17 at 21:00 Famotidine (Pepcid Iv) 20 mg DAILY IV Last administered on 03/20/17 08:36; Admin Dose 20 MG; Start 03/20/17 at 09:00 Nitroglycerin (Nitroglycerin 0.1 Mg/Hr) 1 patch DAILY TRANSDERM Last administered on 03/20/17 12:49; Admin Dose 1 PATCH; Start 03/19/17 at 17:30 Aspirin 300 mg 300 mg DAILY [place] ; Start 03/19/17 at 16:30 Amiodarone HCl/ Dextrose (Cordarone Iv/ D5W) 500 ml @ 0 mls/hr Q0M IV Last administered on 03/19/17 22:12; Admin Dose 33.4 MLS/HR; Start 03/19/17 at 21:30 ; Stop 03/20/17 at 21:29 Miscellaneous Information (Pending Santyl Order For Wound Care) This patient harrison... PRN PRN XX WOUND CARE; Start 03/20/17 at 01:30 Collagenase (Santyl) 1 applic DAILY TOP Last administered on 03/20/17 09:56; Admin Dose 1 APPLIC; Start 03/20/17 at 09:00 Acetaminophen (Tylenol Tab) 650 mg Q6H PRN PO PAIN AND OR ELEVATED TEMP Last administered on 03/20/17 12:54; Admin Dose 650 MG; Start 03/20/17 at 02:00 Diphenhydramine HCl (Benadryl) 50 mg Q6H PRN PO ITCHING; Start 03/20/17 at 02: 00 Famotidine (Pepcid) 20 mg DAILY PO ; Start 03/21/17 at 09:00 Nystatin (Nystatin Powder) 1 applic BID TOP ; Start 03/20/17 at 15:00 Assessment/Plan Chief Complaint/Hosp Course 1. Transient Inferior STEMI: but catherine angio did not show any flow limiting obstruction ASA daily will cont NTG 2. severe hypo Na: f/u with renal rec 3. HTN: hypotensive now. 4. ?hx Dyslipidemia: under good control now 5. altered LOC/ encephalopathy: etiology unclear. ? related to hypoNa. f/u with neurology rec. 6. diffuse echymosis/ bruisis and skin abrasions ? hx of steroid use? 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 7. abnormal EC. metabolic acidosis: defer to IM. 9. hyperglycemia. : Improved. HgbA1c is wnl. 10. P afib. : complete amiodarone drip and monitor. keep K > 4, Mg > 2 More than 36 minutes of critical care time was spent in management and treatment of this patient, excluding any procedures You for his referral. We will continue to follow along with you HARESH BAIG Problems: HARESH BAIG MD Mar 20, 2017 15:04
[2017-03-20] MEDS: NYSTATIN 30 GM POWDER BTL TOP SCH ×2 (16:38→20:16)
--- NOTE | 2017-03-20 18:08 | RADRPT ---
Vent Rate: 184 bpm RR Interval: 0 msec CA Interval: 0 msec QRS Duration: 88 msec QT Interval: 262 msec QTC Interval: 458 msec P-R-T [place]: 0 - 54 - 79 degrees Poor data quality, interpretation may be adversely affected Atrial fibrillation with rapid ventricular response Nonspecific ST and T wave abnormality , probably digitalis effect Abnormal ECG Electronically Signed By: Barry Guerrero [id number]
[2017-03-20] MEDS: METOCLOPRAMIDE 5 MG TAB PO SCH ×2 (18:25→20:12)
[2017-03-21] VITALS (12 sets, daily range): BP systolic 133–148; BP diastolic 62–87; PULSE 85–101; RESP 17–18
[2017-03-21] MEDS: ACCU-CHEK XX SCH (01:50)
[2017-03-21] MEDS: GUAIFENESIN/CODEINE 5ML CUP PO PRN ×2 (03:08→08:32)
[2017-03-21] MEDS: INSULIN ASPART [NOVOLOG] 3 ML PEN SC SCH ×2 (07:55→11:50)
[2017-03-21 08:11] LABS: BASOPHILS % 0.4 % (0.0-2.0); EOSINOPHILS # 0.1 10^3/ul (0.0-0.5); EOSINOPHILS % 1.9 % (0.0-7.0); HEMATOCRIT 30.6 % (37.0-47.0); HEMOGLOBIN 10.7 g/dl (12.0-16.0); LYMPHOCYTES # 0.8 10^3/ul (0.8-2.9); LYMPHOCYTES % 11.2 % (15.0-51.0); MEAN CORPUSCULAR HEMOGLOBIN 32.6 pg (29.0-33.0); MEAN CORPUSCULAR VOLUME 93.3 fl (82.0-101.0); MEAN PLATELET VOLUME 10.7 fl (7.4-10.4); MONOCYTE # 0.6 10^3/ul (0.3-0.9); MONOCYTES % 8.3 % (0.0-11.0); NEUTROPHILS % 77.8 % (39.0-77.0); PLATELET COUNT 216 10^3/UL (140-415); RED BLOOD COUNT 3.28 10^6/ul (4.20-5.40); RED CELL DISTRIBUTION WIDTH 13.2 % (11.5-14.5); WHITE BLOOD COUNT 6.7 10^3/ul (4.8-10.8)
--- NOTE | 2017-03-21 08:25 | CONS ---
Date/Time of Note Date/Time of Note DATE: 03/21/17 TIME: 08:22 Consult Date/Type/Reason Admit Date/Time Mar 18, 2017 at 21:40 Initial Consult Date 03/18/17 Type of Consultation: cardiology Ordering Provider: MIRANDA ZHAO Subjective CARDIOLOGY FOLLOW UP Subjective: Case discussed with the staff with the physician as well as multiple family members at the bedtime. Patient is more responsive / alert now. she denies any cp or PND orthopnea or palpitations to me rhythm was reviewed. pt remains in NSR OBJECTIVE: General: elderly female. no acute distress HEENT: NC/AT. pupils are equal. round. NECK: NO JVD. no stridor. CV: RRR. systolic murmur; no gallop or rubs. PULM: no wheezing or rhonchi. GI: SOFT, NT, ND, no rebound or guarding Extremity: trace B/L LE edema. no clubbing. neuro: Awake and alert/ oriented Psych: calm rectal: deferred Derm: diffuse and multiple echymosis and bruises and superficial laceration on the skin. echo was personally reviewed: 1. Lower limits of normal systolic function. Normal left ventricular cavity size. Moderate concentric left ventricular hypertrophy. Ejection fraction is visually estimated at 50- 55 %. Tissue Doppler/Mitral Doppler indices are consistent with impaired relaxation (Stage I diastolic dysfunction). These segments of the LV are hypokinetic inferior mid segment. 2. There is mild enlargement of left atrium. 3. Mild mitral leaflet calcification. Mild mitral annular calcification. Trace mitral regurgitation. 4. Aortic sclerosis without stenosis. Trace aortic valve regurgitation. 5. Normal appearance of the tricuspid valve. Unable to obtain RVSP due to minimal presence of tricuspid regurgitation. There is trace tricuspid regurgitation. Objective Vital Signs Date Time Temp Pulse Resp B/P Pulse Ox O2 Delivery O2 Flow Rate FiO2 03/21/17 07:35 98.4 95 18 146/67 93 03/20/17 23:05 2.0 03/20/17 22:00 Room Air Intake and Output 03/20/17 03/20/17 03/21/17 15:00 23:00 07:00 Intake Total 726.9 ml 1506.9 ml Output Total 1140 ml 1125 ml Balance -413.1 ml 381.9 ml Results/Medications Result Diagram: 03/21/17 0725 03/20/17 1410 Results 24 hrs Laboratory Tests Test 03/20/17 08:34 03/20/17 11:38 03/20/17 14:10 03/20/17 18:13 Bedside Glucose 112 112 104 Sodium Level 126 L Test 03/20/17 20:15 03/21/17 07:25 03/21/17 07:52 Bedside Glucose 127 96 White Blood Count 6.7 Red Blood Count 3.28 L Hemoglobin 10.7 L Hematocrit 30.6 L Mean Corpuscular Volume 93.3 Mean Corpuscular Hemoglobin 32.6 Mean Corpuscular Hemoglobin Concent 35.0 Red Cell Distribution Width 13.2 Platelet Count 216 Mean Platelet Volume 10.7 H Neutrophils % 77.8 H Lymphocytes % 11.2 L Monocytes % 8.3 Eosinophils % 1.9 Basophils % 0.4 Nucleated Red Blood Cells % 0.0 Neutrophils # (Manual) 5.2 Lymphocytes # 0.8 Monocytes # 0.6 Eosinophils # 0.1 Basophils # 0.0 Nucleated Red Blood Cells # 0.0 Medications Current Medications Sodium Chloride (NS) 1,000 ml @ 50 mls/hr Q20H IV Last administered on 06:54; Admin Dose 75 MLS/HR; Start 03/19/17 at 00:00 Diagnostic Test (Pha) (Accu-Chek) 1 ea 02 XX ; Start 03/19/17 at 02:00 Aspirin (Halfprin) 81 mg DAILY PO Last administered on 03/20/17 08:36; Admin Dose 81 MG; Start 03/19/17 at 09:00 Docusate Sodium (Colace) 100 mg BID PO Last administered on 03/20/17 20:12; Admin Dose 100 MG; Start 03/19/17 at 09:00 Ondansetron HCl (Zofran Inj) 4 mg Q6H PRN IV NAUSEA AND/OR VOMITING; Start at 00:00 Morphine Sulfate (morphine) 2 mg Q4H PRN IV pain; Start 03/19/17 at 00:00 Lorazepam (Ativan) 1 mg Q6H PRN IV agitation and anxiety Last administered on 14:57; Admin Dose 1 MG; Start 03/19/17 at 00:00 Miscellaneous Information 1 ea NOTE XX ; Start 03/19/17 at 03:30 Glucose (Glutose) 15 gm Q15M PRN PO DECREASED GLUCOSE; Start 03/19/17 at 03:30 Glucose (Glutose) 22.5 gm Q15M PRN PO DECREASED GLUCOSE; Start 03/19/17 at 03: 30 Dextrose (D50w Syringe) 25 ml Q15M PRN IV DECREASED GLUCOSE; Start 03/19/17 at 03:30 Dextrose (D50w Syringe) 50 ml Q15M PRN IV DECREASED GLUCOSE; Start 03/19/17 at 03:30 Glucagon (Glucagen) 1 mg Q15M PRN IM DECREASED GLUCOSE; Start 03/19/17 at 03:30 Glucose (Glutose) 15 gm Q15M PRN BUCCAL DECREASED GLUCOSE; Start 03/19/17 at 03 :30 Labetalol HCl 10 mg 10 mg Q4H PRN IV SBP>160mmhg; Start 03/19/17 at 04:00 Levetiracetam (Keppra 500 Mg/ 100ml (Pmx)) 100 ml @ 400 mls/hr Q12 IVPB Last administered on 03/20/17 20:34; Admin Dose 400 MLS/HR; Start 03/19/17 at 21:00 Nitroglycerin (Nitroglycerin 0.1 Mg/Hr) 1 patch DAILY TRANSDERM Last administered on 03/20/17 12:49; Admin Dose 1 PATCH; Start 03/19/17 at 17:30 Aspirin (Aspirin) [address] ; Start 03/19/17 at 16:30 Miscellaneous Information (Pending Santyl Order For Wound Care) This patient harrison... PRN PRN XX WOUND CARE; Start 03/20/17 at 01:30 Collagenase (Santyl) 1 applic DAILY TOP Last administered on 03/20/17 09:56; Admin Dose 1 APPLIC; Start 03/20/17 at 09:00 Acetaminophen (Tylenol Tab) 650 mg Q6H PRN PO PAIN AND OR ELEVATED TEMP Last administered on 03/20/17 20:12; Admin Dose 650 MG; Start 03/20/17 at 02:00 Diphenhydramine HCl (Benadryl) 50 mg Q6H PRN PO ITCHING; Start 03/20/17 at 02: 00 Famotidine (Pepcid) 20 mg DAILY PO ; Start 8/30/17 at 09:00 Nystatin (Nystatin Powder) 1 applic BID TOP Last administered on 03/20/17 20: 16; Admin Dose 1 APPLIC; Start 03/20/17 at 15:00 Guaifenesin/ Codeine Phosphate (Robitussin Ac Liquid Cup) 10 ml Q4H PRN PO COUGH Last administered on 03/21/17 03:08; Admin Dose 10 ML; Start 03/21/17 at 03:00 Assessment/Plan Chief Complaint/Hosp Course 1. Transient Inferior STEMI: but catherine angio did not show any flow limiting obstruction ASA daily will cont NTG WILL add coreg as long as BP remains stable. 2. severe hypo Na: f/u with renal rec 3. HTN: hypotensive now. 4. ?hx Dyslipidemia: under good control now 5. altered LOC/ encephalopathy: etiology unclear. ? related to hypoNa. improved now f/u with neurology rec. 6. diffuse echymosis/ bruisis and skin abrasions ? hx of steroid use? 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 7. abnormal EC. metabolic acidosis: defer to IM. 9. hyperglycemia. : Improved. HgbA1c is wnl. 10. P afib. : completed amiodarone drip and monitor. keep K > 4, Mg > 2 11. DC planning when ok with renal and neuro consultants You for his referral. We will continue to follow along with you HARESH BAIG Problems: HARESH BAIG MD Mar 21, 2017 08:25
[2017-03-21] MEDS: ASPIRIN (EC) 81 MG TAB PO SCH (08:33)
[2017-03-21] MEDS: METOCLOPRAMIDE 5 MG TAB PO SCH ×4 (08:33→21:37)
[2017-03-21] MEDS: DOCUSATE SODIUM 100 MG CAP PO SCH ×2 (08:33→21:37)
[2017-03-21] MEDS: FAMOTIDINE 20 MG TAB PO SCH (08:33)
[2017-03-21] MEDS: NITROGLYCERIN 0.1 MG/HR PATCH TRANSDERM SCH (08:33)
[2017-03-21 08:46] LABS: ALBUMIN 3.2 g/dl (3.3-4.9); ALBUMIN/GLOBULIN RATIO 1.03; BILIRUBIN,INDIRECT 0.7 mg/dl (0-1.1); BILIRUBIN,TOTAL 0.7 mg/dl (0.2-1.3); CALCIUM 8.3 mg/dl (8.4-10.2); CREATININE 0.48 mg/dl (0.44-1.00); POTASSIUM 3.9 mmol/L (3.5-5.1); TOTAL PROTEIN 6.3 g/dl (6.1-8.1)
[2017-03-21] MEDS: LEVETIRACETAM 500 MG (PMX) 100 ML IVPB SCH (08:46)
[2017-03-21] MEDS: COLLAGENASE 30 GM TUBE TOP SCH ×2 (08:46→23:03)
[2017-03-21] MEDS: NYSTATIN 30 GM POWDER BTL TOP SCH ×2 (08:46→21:38)
[2017-03-21] MEDS: ASPIRIN 300 MG SUPP PR SCH (08:47)
[2017-03-21 09:13] LABS: PHOSPHORUS 2.6 mg/dl (2.5-4.9)
--- NOTE | 2017-03-21 11:00 | PN ---
DATE: 03/21/2017 SUBJECTIVE DATA: The patient is stable. No events overnight. No fevers, chills, nausea, vomiting. OBJECTIVE DATA: VITAL SIGNS: Blood pressure 146/67, pulse is 95, temperature 98.4, respirations 18. HEENT: Head is normocephalic. NECK: Supple. HEART: Regular rate. LUNGS: Diminished breath sounds at the base. ABDOMEN: Soft, nontender to palpation. No rebound or guarding. EXTREMITIES: Negative for clubbing, cyanosis. No edema. DERMATOLOGIC: Clean. No rashes. MUSCULOSKELETAL: No joint effusion. NEUROLOGIC: No change in exam. MEDICATIONS: Reviewed. LABORATORY AND DIAGNOSTIC DATA: Shows sodium 132, potassium 3.9, BUN 9, creatinine 0.48. White count 6.7, hemoglobin 10.7, hematocrit 30.6, platelet count is 216,000. ASSESSMENT AND PLAN: 1. Acute hyponatremia etiology secondary to volume depletion, hydrochlorothiazide effect. The patient's sodium levels have been slowly improving with appropriate correction rate. At this point, continue current treatment. Supportive care. Continue gentle IV hydration. 2. Acute encephalopathy. Etiology secondary to hyponatremia, improving. 3. Transient ST-elevation. Patient status post cardiac catheterization with clean coronaries. Continue to monitor. 4. Acute seizure possibly secondary to hyponatremia, improving. Continue to monitor. 5. Hypertension, improved. 6. Diffuse ecchymoses. Continue to monitor. Dictated By: Varinder Jeffries DO /sary/radha /Document#: [id number]
[2017-03-21] MEDS: SOD CHLORIDE 0.9% 1,000 ML IV SCH (12:00)
[2017-03-21 13:49] LABS: MICROALBUMIN 1.1 mg/dL
--- NOTE | 2017-03-21 14:40 | PN ---
Date/Time of Note Date/Time of Note DATE: 03/21/17 TIME: 14:34 Assessment/Plan VTE Prophylaxis VTE Prophylaxis Intervention: SCD's Lines/Catheters IV Catheter Type (from Nrs): Peripheral IV Assessment/Plan Chief Complaint/Hosp Course 1. Acute metabolic encephalopathy secondary to postictal state and/or hyponatremia-improved -DC Keppra -Neuro consultation appreciated 2. Severe hyponatremia thought to be causing #1-improving -Continue IV fluids now with normal saline -Nephrology consultation appreciated 3. Acute ST elevation myocardial infarction thought to be secondary to coronary vasospasm status post emergent angiogram with clean coronaries 4. Hypertension-stable 5. Pancreatic cystic structure on CT scan -MRI shows cystic structure that appears to be benign, no further workup Prophylaxis: SCDs Dispo: Possible DC to rehab facility Problems: Subjective 24 Hr Interval Summary Constitutional: no complaints Exam/Review of Systems Vital Signs Vitals Vital Signs Date Time Temp Pulse Resp B/P Pulse Ox O2 Delivery O2 Flow Rate FiO2 03/21/17 12:29 89 03/21/17 12:10 97.8 18 140/67 96 03/20/17 23:05 2.0 03/20/17 22:00 Room Air Intake and Output 03/20/17 03/20/17 03/21/17 15:00 23:00 07:00 Intake Total 726.9 ml 1506.9 ml Output Total 1140 ml 1125 ml Balance -413.1 ml 381.9 ml Exam Constitutional: alert, oriented Respiratory: clear to auscultation Cardiovascular: regular rate and rhythm Gastrointestinal: soft, No distended Musculoskeletal: nl extremities to inspection Results Result Diagram: 03/21/17 0725 03/21/17 0725 Results 24 hrs Laboratory Tests Test 03/20/17 18:13 03/20/17 20:15 03/21/17 07:12 03/21/17 07:25 Bedside Glucose 104 127 Phosphorus Level 2.6 Magnesium Level 2.0 White Blood Count 6.7 Red Blood Count 3.28 L Hemoglobin 10.7 L Hematocrit 30.6 L Mean Corpuscular Volume 93.3 Mean Corpuscular Hemoglobin 32.6 Mean Corpuscular Hemoglobin Concent 35.0 Red Cell Distribution Width 13.2 Platelet Count 216 Mean Platelet Volume 10.7 H Neutrophils % 77.8 H Lymphocytes % 11.2 L Monocytes % 8.3 Eosinophils % 1.9 Basophils % 0.4 Nucleated Red Blood Cells % 0.0 Neutrophils # (Manual) 5.2 Lymphocytes # 0.8 Monocytes # 0.6 Eosinophils # 0.1 Basophils # 0.0 Nucleated Red Blood Cells # 0.0 Sodium Level 132 L Potassium Level 3.9 Chloride Level 96 L Carbon Dioxide Level 25 Anion Gap 15 Blood Urea Nitrogen 9 Creatinine 0.48 Glucose Level 94 Calcium Level 8.3 L Total Bilirubin 0.7 Direct Bilirubin 0.00 Indirect Bilirubin 0.7 Aspartate Amino Transf (AST/SGOT) 36 Alanine Aminotransferase (ALT/SGPT) 37 Alkaline Phosphatase 93 Total Protein 6.3 Albumin 3.2 L Globulin 3.10 Albumin/Globulin Ratio 1.03 Test 03/21/17 07:52 03/21/17 11:41 Bedside Glucose 96 114 Medications Medications Current Medications Sodium Chloride (NS) 1,000 ml @ 50 mls/hr Q20H IV Last administered on 06:54; Admin Dose 75 MLS/HR; Start 03/19/17 at 00:00 Diagnostic Test (Pha) (Accu-Chek) 1 ea 02 XX ; Start 03/19/17 at 02:00 Aspirin (Halfprin) 81 mg DAILY PO Last administered on 03/21/17 08:33; Admin Dose 81 MG; Start 03/19/17 at 09:00 Docusate Sodium (Colace) 100 mg BID PO Last administered on 03/21/17 08:33; Admin Dose 100 MG; Start 03/19/17 at 09:00 Miscellaneous Information 1 ea NOTE XX ; Start 03/19/17 at 03:30 Glucose (Glutose) 15 gm Q15M PRN PO DECREASED GLUCOSE; Start 03/19/17 at 03:30 Glucose (Glutose) 22.5 gm Q15M PRN PO DECREASED GLUCOSE; Start 03/19/17 at 03: 30 Dextrose (D50w Syringe) 25 ml Q15M PRN IV DECREASED GLUCOSE; Start 03/19/17 at 03:30 Dextrose (D50w Syringe) 50 ml Q15M PRN IV DECREASED GLUCOSE; Start 03/19/17 at 03:30 Glucagon (Glucagen) 1 mg Q15M PRN IM DECREASED GLUCOSE; Start 03/19/17 at 03:30 Glucose (Glutose) 15 gm Q15M PRN BUCCAL DECREASED GLUCOSE; Start 03/19/17 at 03 :30 Labetalol HCl (Labetalol) 10 mg Q4H PRN IV SBP>160mmhg; Start 03/19/17 at 04:00 Nitroglycerin (Nitroglycerin 0.1 Mg/Hr) 1 patch DAILY TRANSDERM Last administered on 03/21/17 08:33; Admin Dose 1 PATCH; Start 03/19/17 at 17:30 Aspirin (Aspirin) 300 mg DAILY SC ; Start 03/19/17 at 16:30 Miscellaneous Information (Pending Santyl Order For Wound Care) This patient harrison... PRN PRN XX WOUND CARE; Start 03/20/17 at 01:30 Collagenase (Santyl) 1 applic DAILY TOP Last administered on 03/21/17 08:46; Admin Dose 1 APPLIC; Start 03/20/17 at 09:00 Acetaminophen (Tylenol Tab) 650 mg Q6H PRN PO PAIN AND OR ELEVATED TEMP Last administered on 03/20/17 20:12; Admin Dose 650 MG; Start 03/20/17 at 02:00 Diphenhydramine HCl (Benadryl) 50 mg Q6H PRN PO ITCHING; Start 03/20/17 at 02: 00 Famotidine (Pepcid) 20 mg DAILY PO Last administered on 03/21/17 08:33; Admin Dose 20 MG; Start 03/21/17 at 09:00 Nystatin (Nystatin Powder) 1 applic BID TOP Last administered on 03/21/17 08: 46; Admin Dose 1 APPLIC; Start 03/20/17 at 15:00 Guaifenesin/ Codeine Phosphate (Robitussin Ac Liquid Cup) 10 ml Q4H PRN PO COUGH Last administered on 03/21/17 08:32; Admin Dose 10 ML; Start 03/21/17 at 03:00 Carvedilol (Coreg) 3.125 mg BID PO Last administered on 03/21/17 08:37; Admin Dose 3.125 MG; Start 03/21/17 at 09:00 MIRANDA ZHAO Mar 21, 2017 14:40
[2017-03-21] MEDS ORDERED: COLLAGENASE 30 GM TUBE TOP PRN (22:30)
[2017-03-22] VITALS (12 sets, daily range): BP systolic 107–165; BP diastolic 54–75; PULSE 67–96; RESP 18–20
[2017-03-22] MEDS: METOCLOPRAMIDE 5 MG TAB PO SCH ×4 (06:05→20:53)
[2017-03-22] MEDS: ACETAMINOPHEN 325 MG TAB PO PRN ×2 (06:06→14:56)
[2017-03-22 07:43] LABS: CALCIUM 8.5 mg/dl (8.4-10.2); CREATININE 0.44 mg/dl (0.44-1.00); POTASSIUM 3.5 mmol/L (3.5-5.1)
[2017-03-22] MEDS: ASPIRIN 300 MG SUPP PR SCH (09:00)
[2017-03-22] MEDS ORDERED: POTASSIUM CHLORIDE (SR) 20 MEQ TAB PO STA (09:04)
--- NOTE | 2017-03-22 09:04 | CONS ---
Date/Time of Note Date/Time of Note DATE: 03/22/17 TIME: 09:01 Consult Date/Type/Reason Admit Date/Time Mar 18, 2017 at 21:40 Initial Consult Date 03/18/17 Type of Consultation: cardiology Ordering Provider: MIRANDA ZHAO Subjective CARDIOLOGY FOLLOW UP Subjective: Case discussed with the staff and rhythm was reviewed. pt remains in NSR. D/W family members at the bedtime. she denies any cp or PND orthopnea or palpitations to me rhythm was reviewed. pt remains in NSR PT with fever this am OBJECTIVE: General: elderly female. no acute distress HEENT: NC/AT. pupils are equal. round. NECK: NO JVD. no stridor. CV: RRR. systolic murmur; no gallop or rubs. PULM: no wheezing or rhonchi. GI: SOFT, NT, ND, no rebound or guarding Extremity: trace B/L LE edema. no clubbing. neuro: Awake and alert/ oriented x2 Psych: calm rectal: deferred Derm: diffuse and multiple echymosis and bruises and superficial laceration on the skin. echo was personally reviewed: 1. Lower limits of normal systolic function. Normal left ventricular cavity size. Moderate concentric left ventricular hypertrophy. Ejection fraction is visually estimated at 50- 55 %. Tissue Doppler/Mitral Doppler indices are consistent with impaired relaxation (Stage I diastolic dysfunction). These segments of the LV are hypokinetic inferior mid segment. 2. There is mild enlargement of left atrium. 3. Mild mitral leaflet calcification. Mild mitral annular calcification. Trace mitral regurgitation. 4. Aortic sclerosis without stenosis. Trace aortic valve regurgitation. 5. Normal appearance of the tricuspid valve. Unable to obtain RVSP due to minimal presence of tricuspid regurgitation. There is trace tricuspid regurgitation. Objective Vital Signs Date Time Temp Pulse Resp B/P Pulse Ox O2 Delivery O2 Flow Rate FiO2 03/22/17 08:00 71 03/22/17 07:33 98.9 18 129/59 94 03/20/17 23:05 2.0 03/20/17 22:00 Room Air Intake and Output 03/21/17 03/21/17 03/22/17 15:00 23:00 07:00 Intake Total 600 ml 500 ml Output Total 900 ml 1200 ml Balance -300 ml -700 ml Results/Medications Result Diagram: 03/21/17 0725 03/22/17 0631 Results 24 hrs Laboratory Tests Test 03/21/17 11:41 03/22/17 06:31 Bedside Glucose 114 Sodium Level 127 L Potassium Level 3.5 Chloride Level 89 L Carbon Dioxide Level 28 Anion Gap 14 Blood Urea Nitrogen 6 L Creatinine 0.44 Glucose Level 141 # Calcium Level 8.5 Medications Current Medications Aspirin (Halfprin) 81 mg DAILY PO Last administered on 03/21/17 08:33; Admin Dose 81 MG; Start 03/19/17 at 09:00 Docusate Sodium (Colace) 100 mg BID PO Last administered on 03/21/17 21:37; Admin Dose 100 MG; Start 03/19/17 at 09:00 Miscellaneous Information 1 ea NOTE XX ; Start 03/19/17 at 03:30 Glucose (Glutose) 15 gm Q15M PRN PO DECREASED GLUCOSE; Start 03/19/17 at 03:30 Glucose (Glutose) 22.5 gm Q15M PRN PO DECREASED GLUCOSE; Start 03/19/17 at 03: 30 Dextrose (D50w Syringe) 25 ml Q15M PRN IV DECREASED GLUCOSE; Start 03/19/17 at 03:30 Dextrose (D50w Syringe) 50 ml Q15M PRN IV DECREASED GLUCOSE; Start 03/19/17 at 03:30 Glucagon (Glucagen) 1 mg Q15M PRN IM DECREASED GLUCOSE; Start 03/19/17 at 03:30 Glucose (Glutose) 15 gm Q15M PRN BUCCAL DECREASED GLUCOSE; Start 03/19/17 at 03 :30 Labetalol HCl (Labetalol) 10 mg Q4H PRN IV SBP>160mmhg; Start 03/19/17 at 04:00 Nitroglycerin (Nitroglycerin 0.1 Mg/Hr) 1 patch DAILY TRANSDERM Last administered on 03/21/17 08:33; Admin Dose 1 PATCH; Start 03/19/17 at 17:30 Aspirin (Aspirin) 300 mg DAILY CO ; Start 03/19/17 at 16:30 Collagenase (Santyl) 1 applic DAILY TOP Last administered on 03/21/17 23:03; Admin Dose 1 APPLIC; Start 03/20/17 at 09:00 Acetaminophen (Tylenol Tab) 650 mg Q6H PRN PO PAIN AND OR ELEVATED TEMP Last administered on 03/22/17 06:06; Admin Dose 650 MG; Start 03/20/17 at 02:00 Diphenhydramine HCl (Benadryl) 50 mg Q6H PRN PO ITCHING; Start 03/20/17 at 02: 00 Famotidine (Pepcid) 20 mg DAILY PO Last administered on 03/21/17 08:33; Admin Dose 20 MG; Start 03/21/17 at 09:00 Nystatin (Nystatin Powder) 1 applic BID TOP Last administered on 03/21/17 21: 38; Admin Dose 1 APPLIC; Start 03/20/17 at 15:00 Guaifenesin/ Codeine Phosphate (Robitussin Ac Liquid Cup) 10 ml Q4H PRN PO COUGH Last administered on 03/21/17 08:32; Admin Dose 10 ML; Start 03/21/17 at 03:00 Carvedilol (Coreg) 3.125 mg BID PO Last administered on 03/21/17 21:38; Admin Dose 3.125 MG; Start 03/21/17 at 09:00 Collagenase (Santyl) 1 applic DAILY TOP ; Start 03/22/17 at 09:00 Collagenase (Santyl) 1 applic PRN PRN TOP WOUND CARE; Start 03/21/17 at 22:30 Assessment/Plan Chief Complaint/Hosp Course 1. Transient Inferior STEMI: but catherine angio did not show any flow limiting obstruction ASA daily will cont NTG WILL cont coreg as long as BP remains stable. 2. severe hypo Na: f/u with renal rec 3. HTN: on coreg now 4. ?hx Dyslipidemia: under good control now 5. altered LOC/ encephalopathy: etiology unclear. ? related to hypoNa. improved now f/u with neurology rec. 6. diffuse echymosis/ bruisis and skin abrasions ? hx of steroid use? 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 7. abnormal EC. metabolic acidosis: defer to IM. 9. hyperglycemia. : Improved. HgbA1c is wnl. 10. P afib. : completed amiodarone drip and monitor. keep K > 4, Mg > 2 cont betablocker. 11. fever: defer to IM team You for his referral. We will continue to follow along with you HARESH BAIG Problems: HARESH BAIG MD Mar 22, 2017 09:04
[2017-03-22] MEDS: NITROGLYCERIN 0.1 MG/HR PATCH TRANSDERM SCH (09:10)
[2017-03-22] MEDS: DOCUSATE SODIUM 100 MG CAP PO SCH ×2 (09:10→20:53)
[2017-03-22] MEDS: ASPIRIN (EC) 81 MG TAB PO SCH (09:12)
[2017-03-22] MEDS: FAMOTIDINE 20 MG TAB PO SCH (09:12)
[2017-03-22] MEDS: COLLAGENASE 30 GM TUBE TOP SCH (09:13)
[2017-03-22] MEDS: NYSTATIN 30 GM POWDER BTL TOP SCH ×2 (09:14→20:57)
--- NOTE | 2017-03-22 10:14 | PN ---
DATE: 03/22/2017 SUBJECTIVE DATA: Patient is stable. No events overnight. No fevers, chills, nausea, vomiting. OBJECTIVE DATA: VITAL SIGNS: Blood pressure 129/59, respirations 18, pulse 84, temperature 98.9. HEENT: Head is normocephalic. NECK: Supple. HEART: Regular rate. LUNGS: Show diminished breath sounds at the base. ABDOMEN: Soft, nontender to palpation. No rebound or guarding. EXTREMITIES: Negative for clubbing, cyanosis. Trace edema. DERMATOLOGIC: Clean. No rashes. MUSCULOSKELETAL: No joint effusion. NEUROLOGIC: Unchanged exam. MEDICATIONS: Reviewed. LABORATORY AND DIAGNOSTIC DATA: Shows sodium 127, potassium 3.5, BUN 6, creatinine 0.44. White count 6.7, hemoglobin 10.7, crit 30.6, platelet count is 316. ASSESSMENT AND PLAN: 1. Acute hyponatremia. Etiology was initially secondary to volume depletion, hydrochlorothiazide effect. The patient, however, may have underlying syndrome of inappropriate antidiuretic hormone secretion. Sodium levels have not declined despite receiving intravenous fluids. At this point, would repeat urinalysis, would have the patient on free water restriction. Encourage high-osmolality diet. Monitor closely. We will discontinue intravenous fluids. 2. Acute encephalopathy. Etiology secondary to hyponatremia, improving. 3. Transient ST-elevation. The patient is status post cardiac cath with clean coronaries. Continue to monitor. 4. Status post fusion. 5. Hypertension, improved. 6. Diffuse ecchymosis. Continue to monitor. Dictated By: Varinder Jeffries DO /sary/pollo /Document#: [id number]
--- NOTE | 2017-03-22 11:55 | CONS ---
Date/Time of Note Date/Time of Note DATE: 03/22/17 TIME: 11:51 Consult Date/Type/Reason Admit Date/Time Mar 18, 2017 at 21:40 Initial Consult Date 03/20/17 Type of Consultation: Neurology Reason for Consultation seizure, encephalopathy Ordering Provider: MIRANDA ZHAO Subjective fever overnight, c/o vaginal itching Na: 127 no further seizures, MRI pending per daughter at bedside no further neurologic changes Objective Vital Signs Date Time Temp Pulse Resp B/P Pulse Ox O2 Delivery O2 Flow Rate FiO2 03/22/17 11:05 97.4 72 18 128/54 92 03/20/17 23:05 2.0 03/20/17 22:00 Room Air Intake and Output 03/21/17 03/21/17 03/22/17 15:00 23:00 07:00 Intake Total 600 ml 500 ml Output Total 900 ml 1200 ml Balance -300 ml -700 ml Exam awake alert oriented to self, hospital frail appearing diffuse ecchymosis in extremities follows commands CN: II-XII grossly intact Motor: lifts all extremities anti-gravity poor effort throughout no ataxia Sensory intact Reflexes 1+ throughout toes down Results/Medications Result Diagram: 03/21/17 0725 03/22/17 0631 Results 24 hrs Laboratory Tests Test 03/22/17 06:31 Sodium Level 127 L Potassium Level 3.5 Chloride Level 89 L Carbon Dioxide Level 28 Anion Gap 14 Blood Urea Nitrogen 6 L Creatinine 0.44 Glucose Level 141 # Calcium Level 8.5 Medications Current Medications Aspirin (Halfprin) 81 mg DAILY PO Last administered on 03/22/17 09:12; Admin Dose 81 MG; Start 03/19/17 at 09:00 Docusate Sodium (Colace) 100 mg BID PO Last administered on 03/22/17 09:10; Admin Dose 100 MG; Start 03/19/17 at 09:00 Miscellaneous Information 1 ea NOTE XX ; Start 03/19/17 at 03:30 Glucose (Glutose) 15 gm Q15M PRN PO DECREASED GLUCOSE; Start 03/19/17 at 03:30 Glucose (Glutose) 22.5 gm Q15M PRN PO DECREASED GLUCOSE; Start 03/19/17 at 03: 30 Dextrose (D50w Syringe) 25 ml Q15M PRN IV DECREASED GLUCOSE; Start 03/19/17 at 03:30 Dextrose (D50w Syringe) 50 ml Q15M PRN IV DECREASED GLUCOSE; Start 03/19/17 at 03:30 Glucagon (Glucagen) 1 mg Q15M PRN IM DECREASED GLUCOSE; Start 03/19/17 at 03:30 Glucose (Glutose) 15 gm Q15M PRN BUCCAL DECREASED GLUCOSE; Start 03/19/17 at 03 :30 Labetalol HCl (Labetalol) 10 mg Q4H PRN IV SBP>160mmhg; Start 03/19/17 at 04:00 Nitroglycerin (Nitroglycerin 0.1 Mg/Hr) 1 patch DAILY TRANSDERM Last administered on 03/22/17 09:10; Admin Dose 1 PATCH; Start 03/19/17 at 17:30 Aspirin (Aspirin) 300 mg DAILY ND ; Start 03/19/17 at 16:30 Collagenase (Santyl) 1 applic DAILY TOP Last administered on 03/21/17 23:03; Admin Dose 1 APPLIC; Start 03/20/17 at 09:00 Acetaminophen (Tylenol Tab) 650 mg Q6H PRN PO PAIN AND OR ELEVATED TEMP Last administered on 03/22/17 06:06; Admin Dose 650 MG; Start 03/20/17 at 02:00 Diphenhydramine HCl (Benadryl) 50 mg Q6H PRN PO ITCHING; Start 03/20/17 at 02: 00 Famotidine (Pepcid) 20 mg DAILY PO Last administered on 03/22/17 09:12; Admin Dose 20 MG; Start 03/21/17 at 09:00 Nystatin (Nystatin Powder) 1 applic BID TOP Last administered on 03/22/17 09: 14; Admin Dose 1 APPLIC; Start 03/20/17 at 15:00 Guaifenesin/ Codeine Phosphate (Robitussin Ac Liquid Cup) 10 ml Q4H PRN PO COUGH Last administered on 03/21/17 08:32; Admin Dose 10 ML; Start 03/21/17 at 03:00 Carvedilol (Coreg) 3.125 mg BID PO Last administered on 03/22/17 09:12; Admin Dose 3.125 MG; Start 03/21/17 at 09:00 Collagenase (Santyl) 1 applic DAILY TOP Last administered on 03/22/17 09:13; Admin Dose 1 APPLIC; Start 03/22/17 at 09:00 Collagenase (Santyl) 1 applic PRN PRN TOP WOUND CARE; Start 03/21/17 at 22:30 Assessment/Plan Chief Complaint/Hosp Course 86 yo female with hx of HTN admitted with severe hyponatremia Na: 114 on admission, improved to 127 today, STEMI s/p cardiac catheterization, seizure, new onset afib. Seizure likely secondary to metabolic abnormality, no further seizures. Recommendations: Continue slow Sodium correction Recommend MRI Brain w/o contrast to evaluate for acute ischemic injury given new onset afib and seizure continue on aspirin 81 mg daily given advanced age and severe ecchymosis, underlying dementia not a good candidate for AC at this time EEG shows slowing, no epileptiform discharges Dr. Herman will be covering over the weekend if any concerning MRI findings, please contact him for follow up Problems: TATIANA SY MD Mar 22, 2017 11:55
[2017-03-22 14:39] LABS: CALCIUM 8.5 mg/dl (8.4-10.2); CREATININE 0.44 mg/dl (0.44-1.00); POTASSIUM 4.1 mmol/L (3.5-5.1)
[2017-03-22 15:45] LABS: ADD UMIC NO; UR ASCORBIC ACID NEGATIVE (NEGATIVE); UR BILIRUBIN (Dip) NEGATIVE (NEGATIVE); UR BLOOD (Dip) NEGATIVE (NEGATIVE); UR CLARITY CLEAR (CLEAR); UR COLOR YELLOW (YELLOW); UR GLUCOSE (Dip) NEGATIVE (NEGATIVE); UR KETONES (Dip) NEGATIVE (NEGATIVE); UR LEUKOCYTE ESTERASE (Dip) NEGATIVE Leu/ul (NEGATIVE); UR NITRITE (Dip) NEGATIVE (NEGATIVE); UR SPECIFIC GRAVITY (Dip) 1.003 (1.003-1.030); UR TOTAL PROTEIN (Dip) NEGATIVE (NEGATIVE); UR UROBILINOGEN (Dip) NEGATIVE (NEGATIVE)
--- NOTE | 2017-03-22 18:06 | PN ---
Date/Time of Note Date/Time of Note DATE: 03/22/17 TIME: 18:04 Assessment/Plan VTE Prophylaxis VTE Prophylaxis Intervention: SCD's Lines/Catheters IV Catheter Type (from Nrs): Peripheral IV Assessment/Plan Chief Complaint/Hosp Course 1. Acute metabolic encephalopathy secondary to postictal state and/or hyponatremia-improved -DC Keppra -Neuro consultation appreciated 2. Severe hyponatremia thought to be causing #1 -Fluid restriction -Nephrology consultation appreciated 3. Acute ST elevation myocardial infarction thought to be secondary to coronary vasospasm status post emergent angiogram with clean coronaries 4. Hypertension-stable 5. Pancreatic cystic structure on CT scan -MRI shows cystic structure that appears to be benign, no further workup 6. Moderate to severe dementia newly diagnosed -Family would like home hospice, hospice eval obtained Prophylaxis: SCDs Dispo: DC to home with hospice tomorrow Problems: Subjective 24 Hr Interval Summary Constitutional: disoriented Exam/Review of Systems Vital Signs Vitals Vital Signs Date Time Temp Pulse Resp B/P Pulse Ox O2 Delivery O2 Flow Rate FiO2 03/22/17 16:00 80 03/22/17 15:30 98.6 18 137/67 91 03/20/17 23:05 2.0 03/20/17 22:00 Room Air Intake and Output 03/21/17 03/21/17 03/22/17 15:00 23:00 07:00 Intake Total 600 ml 500 ml Output Total 900 ml 1200 ml Balance -300 ml -700 ml Exam Constitutional: alert Psych: confusion Respiratory: clear to auscultation Cardiovascular: regular rate and rhythm Gastrointestinal: soft, No distended Musculoskeletal: nl extremities to inspection Results Result Diagram: 03/21/17 0725 03/22/17 1345 Results 24 hrs Laboratory Tests Test 03/22/17 06:31 03/22/17 09:35 03/22/17 13:45 Sodium Level 127 L 130 L Potassium Level 3.5 4.1 Chloride Level 89 L 90 L Carbon Dioxide Level 28 31 Anion Gap 14 13 Blood Urea Nitrogen 6 L 9 Creatinine 0.44 0.44 Glucose Level 141 # 134 Calcium Level 8.5 8.5 Urine Color YELLOW Urine Clarity CLEAR Urine pH 6.0 Urine Specific Mackey 1.003 Urine Ketones NEGATIVE Urine Nitrite NEGATIVE Urine Bilirubin NEGATIVE Urine Urobilinogen NEGATIVE Urine Leukocyte Esterase NEGATIVE Urine Hemoglobin NEGATIVE Urine Random Creatinine < 12.40 L Urine Random Sodium 13 L Urine Glucose NEGATIVE Urine Total Protein 16.0 H Medications Medications Current Medications Aspirin (Halfprin) 81 mg DAILY PO Last administered on 03/22/17 09:12; Admin Dose 81 MG; Start 03/19/17 at 09:00 Docusate Sodium (Colace) 100 mg BID PO Last administered on 03/22/17 09:10; Admin Dose 100 MG; Start 03/19/17 at 09:00 Miscellaneous Information 1 ea NOTE XX ; Start 03/19/17 at 03:30 Glucose (Glutose) 15 gm Q15M PRN PO DECREASED GLUCOSE; Start 03/19/17 at 03:30 Glucose (Glutose) 22.5 gm Q15M PRN PO DECREASED GLUCOSE; Start 03/19/17 at 03: 30 Dextrose (D50w Syringe) 25 ml Q15M PRN IV DECREASED GLUCOSE; Start 03/19/17 at 03:30 Dextrose (D50w Syringe) 50 ml Q15M PRN IV DECREASED GLUCOSE; Start 03/19/17 at 03:30 Glucagon (Glucagen) 1 mg Q15M PRN IM DECREASED GLUCOSE; Start 03/19/17 at 03:30 Glucose (Glutose) 15 gm Q15M PRN BUCCAL DECREASED GLUCOSE; Start 03/19/17 at 03 :30 Labetalol HCl (Labetalol) 10 mg Q4H PRN IV SBP>160mmhg; Start 03/19/17 at 04:00 Nitroglycerin (Nitroglycerin 0.1 Mg/Hr) 1 patch DAILY TRANSDERM Last administered on 03/22/17 09:10; Admin Dose 1 PATCH; Start 03/19/17 at 17:30 Aspirin (Aspirin) 300 mg DAILY [place] ; Start 03/19/17 at 16:30 Collagenase (Santyl) 1 applic DAILY TOP Last administered on 03/21/17 23:03; Admin Dose 1 APPLIC; Start 03/20/17 at 09:00 Acetaminophen (Tylenol Tab) 650 mg Q6H PRN PO PAIN AND OR ELEVATED TEMP Last administered on 03/22/17 14:56; Admin Dose 650 MG; Start 03/20/17 at 02:00 Diphenhydramine HCl (Benadryl) 50 mg Q6H PRN PO ITCHING; Start 03/20/17 at 02: 00 Famotidine (Pepcid) 20 mg DAILY PO Last administered on 03/22/17 09:12; Admin Dose 20 MG; Start 03/21/17 at 09:00 Nystatin (Nystatin Powder) 1 applic BID TOP Last administered on 03/22/17 09: 14; Admin Dose 1 APPLIC; Start 03/20/17 at 15:00 Guaifenesin/ Codeine Phosphate (Robitussin Ac Liquid Cup) 10 ml Q4H PRN PO COUGH Last administered on 03/21/17 08:32; Admin Dose 10 ML; Start 03/21/17 at 03:00 Carvedilol (Coreg) 3.125 mg BID PO Last administered on 03/22/17 09:12; Admin Dose 3.125 MG; Start 03/21/17 at 09:00 Collagenase (Santyl) 1 applic DAILY TOP Last administered on 03/22/17 09:13; Admin Dose 1 APPLIC; Start 03/22/17 at 09:00 Collagenase (Santyl) 1 applic PRN PRN TOP WOUND CARE; Start 03/21/17 at 22:30 MIRANDA ZHAO Mar 22, 2017 18:06
[2017-03-22] MEDS: GUAIFENESIN/CODEINE 5ML CUP PO PRN (21:37)
[2017-03-23] VITALS (8 sets, daily range): BP systolic 117–154; BP diastolic 55–68; PULSE 79–89; RESP 20
[2017-03-23] MEDS ORDERED: MAGNESIUM HYDROXIDE 30ML CUP PO ONE
[2017-03-23] MEDS: ACETAMINOPHEN 325 MG TAB PO PRN (03:42)
[2017-03-23 07:33] LABS: ALBUMIN 3.1 g/dl (3.3-4.9); BILIRUBIN,INDIRECT 0.5 mg/dl (0-1.1); BILIRUBIN,TOTAL 0.5 mg/dl (0.2-1.3); CALCIUM 8.7 mg/dl (8.4-10.2); CREATININE 0.46 mg/dl (0.44-1.00); MAGNESIUM 2.3 mg/dl (1.7-2.5); POTASSIUM 4.3 mmol/L (3.5-5.1); TOTAL PROTEIN 6.2 g/dl (6.1-8.1)
[2017-03-23] MEDS ORDERED: MEMANTINE 5 MG TAB PO SCH (09:00)
[2017-03-23] MEDS: DOCUSATE SODIUM 100 MG CAP PO SCH (09:00)
[2017-03-23] MEDS ORDERED: SENNA TAB PO SCH (09:00)
[2017-03-23] MEDS: ASPIRIN 300 MG SUPP PR SCH (09:00)
[2017-03-23] MEDS ORDERED: DONEPEZIL 5 MG TAB PO SCH (09:00)
[2017-03-23] MEDS: METOCLOPRAMIDE 5 MG TAB PO SCH (09:20)
[2017-03-23] MEDS: ASPIRIN (EC) 81 MG TAB PO SCH (09:26)
[2017-03-23] MEDS: NITROGLYCERIN 0.1 MG/HR PATCH TRANSDERM SCH (09:26)
[2017-03-23] MEDS: FAMOTIDINE 20 MG TAB PO SCH (09:26)
[2017-03-23] MEDS: NYSTATIN 30 GM POWDER BTL TOP SCH (09:27)
[2017-03-23] MEDS: COLLAGENASE 30 GM TUBE TOP SCH ×2 (09:27)
--- NOTE | 2017-03-23 09:28 | PN ---
DATE: 03/23/2017 SUBJECTIVE DATA: Patient is stable. No events overnight. No fevers, chills, nausea, vomiting. No shortness of breath. OBJECTIVE DATA: VITAL SIGNS: Blood pressure 133/60, respirations 20, pulse 72, temperature 98.1. HEENT: Head is normocephalic. NECK: Supple. HEART: Regular rate. LUNGS: Diminished breath sounds base. ABDOMEN: Soft, nontender to palpation. No rebound or guarding. EXTREMITIES: Negative for clubbing, cyanosis. No edema. DERMATOLOGIC: No rashes. MUSCULOSKELETAL: No joint effusion. NEUROLOGIC: Unchanged exam. MEDICATIONS: Reviewed. LABORATORY AND DIAGNOSTIC DATA: Shows a sodium 129, potassium 4.3, BUN 13, creatinine 0.46. Urinalysis shows a FENa less than 1 percent and urine osmolality is 99. ASSESSMENT AND PLAN: 1. Hyponatremia. Etiology is secondary to hydrochlorothiazide effect and low solute intake. Patient's urinalysis shows a FENa less than 1 percent and also shows urine osmolality of 99, which indicates the patient can appropriately dilute her urine. At this point, I would recommend increase in solute intake. Recommend to minimize free water intake. Monitor closely. 2. Acute encephalopathy. Etiology secondary to hyponatremia, improving. 3. Transient ST-elevation. The patient is status post cardiac catheterization. Continue to monitor. 4. Hypertension, improved. 5. Diffuse ecchymosis. Continue to monitor. 6. Pancreatic cyst. 7. Severe dementia. Dictated By: Varinder Jeffries DO /sary/robbie /Document#: [id number]
[2017-03-23] MEDS ORDERED: MEMA5TAB14 PO (11:08)
[2017-03-23] MEDS ORDERED: DONE5TAB32 PO (11:08)
[2017-03-23] MEDS ORDERED: DOCU-216 PO (11:08)
[2017-03-23] MEDS ORDERED: SAN30GM TOP (11:08)
[2017-03-23] MEDS ORDERED: METO5TAB11 PO (11:08)
[2017-03-23] MEDS ORDERED: NYST15PO4 TOP (11:08)
--- NOTE | 2017-03-23 15:53 | DS ---
Date/Time of Note Date/Time of Note DATE: 03/23/17 TIME: 15:48 Discharge Summary Admission/Discharge Info Admit Date/Time Mar 18, 2017 at 21:40 Discharge Date/Time Mar 23, 2017 at 12:24 Discharge Diagnosis 1. Acute metabolic encephalopathy secondary to postictal state and/or hyponatremia-resolved -DC Keppra -Neuro consultation appreciated 2. Severe hyponatremia thought to be causing #1 -Status post fluid restriction -Nephrology consultation appreciated 3. Acute ST elevation myocardial infarction thought to be secondary to coronary vasospasm status post emergent angiogram with clean coronaries 4. Hypertension-stable 5. Pancreatic cystic structure on CT scan -MRI shows cystic structure that appears to be benign, no further workup 6. Severe dementia newly diagnosed with debility and nonambulatory state -DC to home with hospice Patient Condition: Fair Hospital Course Patient is an 86-year-old female with a past medical history only of high blood pressure who was brought into the as a code STEMI. Patient had a cardiac cath that showed no significant occlusion. Patient did have a seizure secondary to hyponatremia. Patient has no history of seizures and she had no further seizures during hospitalization. Patient did have acute encephalopathy with nonverbal state after the seizure but her mentation did improve and became verbal, patient was given IV fluids and hyponatremia improved. Patient was diagnosed with severe dementia during his hospitalization as she was unable to ambulate and had significant debility and her mentation continued to be poor as she was alert only to her name which according to the family was her baseline. Family did not want aggressive care and patient wanted to return home, and it was felt the patient was appropriate for home hospice. On the day of discharge patient's vitals, labs and physical exam are stable, questions were answered the patient had no acute issues. Home Meds Active Scripts Docusate Sodium (Dok) 100 Mg Capsule, 100 MG PO BID, #30 CAP Prov:MIRANDA ZHAO 03/23/17 Collagenase* (Santyl*) 30 Gm Oint..gm., 1 APPLIC TOP DAILY, #1 TUB Prov:MIRANDA ZHAO 03/23/17 Donepezil* (Aricept*) 5 Mg Tablet, 5 MG PO DAILY, #30 TAB Prov:MIRANDA ZHAO 03/23/17 Nystatin* (Nystop*) 15 Gm Powder, 1 APPLIC TOP BID, #1 TUB Prov:MIRANDA ZHAO 03/23/17 Metoclopramide Hcl* (Metoclopramide Hcl*) 5 Mg Tablet, 5 MG PO AC MEALS AND BEDTIME, #30 TAB Prov:MIRANDA ZHAO 03/23/17 Memantine HCl (Memantine HCl) 5 Mg Tablet, 5 MG PO DAILY, #30 TAB Prov:MIRANDA ZHAO 03/23/17 Reported Medications Hydrocodone/Acetaminophen ([place] 5-325 Tablet) 1 Each Tablet, 1 EACH PO Q6, TAB 03/19/17 Dicyclomine Hcl (DICYCLOMINE HCL) 10 Mg/5 Ml Solution, 10 MG PO, ML 03/19/17 Montelukast Sodium* (Montelukast Sodium*) 10 Mg Tablet, 10 MG PO QHS, #30 TAB 03/19/17 Polyethylene Glycol* (Polyethylene Glycol*) 17 Gm Powd.pack, 17 GM PO DAILY, # 30 PACKET 03/19/17 Diclofenac Sodium* (Diclofenac Sodium*) 75 Mg Tablet.dr, 75 MG PO BID, #60 TAB 03/19/17 Discontinued Reported Medications Losartan Potassium* (Losartan Potassium*) 25 Mg Tablet, 25 MG PO DAILY, TAB 03/19/17 Nitrofurantoin Monohyd Macrocr (Macrobid) 100 Mg Capsr, 100 MG PO Q12, CAP 03/19/17 Pantoprazole (Protonix) 40 Mg Tabec, 40 MG PO DAILY, TAB 03/19/17 Hydrochlorothiazide* (Hydrochlorothiazide*) 12.5 Mg Tablet, 12.5 MG PO DAILY, # 30 TAB 03/19/17 Follow-up Plan Follow-up with hospice agency Primary Care Provider Care Physician No Primary Time spent on discharge: > 30 minutes MIRANDA ZHAO Mar 23, 2017 15:53
== END 2017-03-23 12:24 | disposition hospice, home (50) | DRG 280 ==
LOC: E/R 20:44 → ICU 21:40 → TEL 03-20 22:48
PROVIDERS: ADMIT Family Medicine; ATTEND Family Medicine
PROC: B211YZZ Fluoroscopy of Multiple Coronary Arteries using Other Contrast (ICD-10-PCS; 2017-03-18)
PROC: B215YZZ Fluoroscopy of Left Heart using Other Contrast (ICD-10-PCS; 2017-03-18)
PROC: 4A023N7 Measurement of Cardiac Sampling and Pressure, Left Heart, Percutaneous Approach (ICD-10-PCS; principal; 2017-03-18 22:00)
DX: I21.19 ST elevation (STEMI) myocardial infarction involving other coronary artery of inferior wall (principal); G93.41 Metabolic encephalopathy; E87.2 Acidosis; E87.1 Hypo-osmolality and hyponatremia; I16.9 Hypertensive crisis, unspecified; R56.9 Unspecified convulsions; R41.82 Altered mental status, unspecified; K21.9 Gastro-esophageal reflux disease without esophagitis; Z90.49 Acquired absence of other specified parts of digestive tract; R23.3 Spontaneous ecchymoses; F03.90 Unspecified dementia, unspecified severity, without behavioral disturbance, psychotic disturbance, mood disturbance, and anxiety
CPT/HCPCS: 36415; 70450; 70551; 71010; 74182; 76705; 80048; 80053; 80061; 81003; 82043; 82378; 82550; 82553; 82962; 83036; 83605; 83690; 83735; 83880; 83930; 83935; 84100; 84155; 84295; 84300; 84439; 84443; 84484; 85025; 85610; 85730; 86301; 86304; 87040; 87081; 87086; 93005; 93306; 93458; 95819; 96374; 96375; 97163; C1887; C1894; J0282; J1644; J1815; J1953; J2060; J2250; J2270; J2405; J3010; J3475; J3480; J7030; J7060; Q9967

== ENCOUNTER 2018-01-30 15:29 | Inpatient (IN) | END 2018-01-31 20:53 | disposition hospice, home (50) | DRG 392 ==